=== PATIENT | female | born 1935 | race Caucasian/White ===

== ENCOUNTER → 2017-01-11 | Outpatient (CLI) | payer OTHER, BC | LOC: FIMAGING 13:52 | PROVIDERS: ATTEND Internal Medicine Endocrinology, Diabetes & Metabolism | DX: C73 Malignant neoplasm of thyroid gland (principal); E89.0 Postprocedural hypothyroidism ==

== ENCOUNTER → 2017-03-21 | Outpatient (CLI) | payer OTHER, BC | LOC: FIMAGING 09:37 | PROVIDERS: ATTEND Internal Medicine Endocrinology, Diabetes & Metabolism | DX: R59.0 Localized enlarged lymph nodes (principal); Z85.850 Personal history of malignant neoplasm of thyroid ==

== ENCOUNTER → 2017-04-12 | Outpatient (CLI) | payer OTHER, BC ==
[~2017-04-12] MED LIST: IOPAMIDOL (ISOVUE-300) 100 ML BTL ONE
== END ==
LOC: FIMAGING 07:37
PROVIDERS: ATTEND Surgery
DX: C73 Malignant neoplasm of thyroid gland (principal); R91.8 Other nonspecific abnormal finding of lung field
CPT/HCPCS: 70491; 71260; Q9967

== ENCOUNTER 2017-05-05 09:35 | Inpatient (IN) | payer OTHER, BC ==
[2017-05-05] MEDS ORDERED: ceFAZolin 2 GM/DEXTROSE 100 ML IV ONE (10:18)
[2017-05-05] MEDS ORDERED: LR 1,000 ML IV SCH ×2 (10:18→15:30)
[2017-05-05] MEDS ORDERED: DEXAMETHASONE 4 MG/ML VIAL IVP ONE (10:18)
[2017-05-05] MEDS ORDERED: LIDO/EPI 2% **for epidural** 20 ML SDV ONE (10:56)
[2017-05-05] MEDS ORDERED: ALBUMIN 5% 250 ML BOTTLE IV ONE ×2 (10:57→13:38)
[2017-05-05] MEDS ORDERED: BACITRACIN ZINC 14.2 GM OINTTUBE TP ONE (10:58)
[2017-05-05] MEDS ORDERED: fentaNYL 100 MCG/2 ML INJ ONE ×2 (10:59→13:02)
[2017-05-05] MEDS ORDERED: OXYMETAZOLINE 30 ML NASAL SPRAY ONE (10:59)
[2017-05-05] MEDS ORDERED: PROPOFOL/EMULSION 500 MG/50 ML BOTTLE IV ONE (10:59)
--- NOTE | 2017-05-05 11:08 | PDHPUP ---
History & Physical Update H&P update statement: This history and physical update is based on an assessment of the patient which was completed after admission or registration (within 24 hours), but prior to the surgery/procedure.
[2017-05-05] MEDS ORDERED: LIDOCAINE 2% 5 ML SDV ONE (11:10)
[2017-05-05] MEDS ORDERED: NYSTATIN SUSP 500000 UNIT/5 ML UDCUP PO PRN (11:10)
[2017-05-05] MEDS ORDERED: FLUCONAZOLE 100 MG TAB PO PRN (11:10)
[2017-05-05] MEDS ORDERED: ROCURONIUM 50 MG/5 ML VIAL ONE ×2 (11:10→13:36)
[2017-05-05] MEDS ORDERED: LR 1,000 ML IV ONE (11:16)
[2017-05-05] MEDS ORDERED: DEXMEDETOMIDINE HCL 400 MCG in NS 100 ML IV SCH (11:30)
[2017-05-05] MEDS ORDERED: CALCIUM CHLORIDE 1 GM/10 ML INJ ONE (13:40)
[2017-05-05] MEDS ORDERED: ONDANSETRON 4 MG/2 ML VIAL ONE (13:49)
[2017-05-05] MEDS ORDERED: RANITIDINE 50 MG/2 ML VIAL ONE (13:49)
--- NOTE | 2017-05-05 13:49 | PDANEPAE ---
ANE Past Medical History - Cardiovascular History Hx Hypertension: No Hx Arrhythmias: No Hx Chest Pain: No Hx Coronary Artery / Peripheral Vascular Disease: No Hx CHF / Valvular Disease: No Hx Palpitations: No Cardiovascular History Comment: ELEVATED LIPIDS - Pulmonary History Hx COPD: Yes Hx Asthma/Reactive Airway Disease: No Hx Recent Upper Respiratory Infection: No Hx Oxygen in Use at Home: Yes O2 in Use at Home (L/minute): 2 Hx Sleep Apnea: No Sleep Apnea Screening Result - Last Documented: Negative Pulmonary History Comment: Emphysema. O2 at 2lpm at NOC, 3lpm with activity, Hx of Pneumonia/empyema - Neurologic History Hx Cerebrovascular Accident: No Hx Seizures: No Hx Dementia: No - Endocrine History Hx Diabetes: No Endocrine History Comment: Thyroid CA, Thyroidectomy - Renal History Hx Renal Disorders: No - Liver History Hx Hepatic Disorders: No - Neurological & Psychiatric Hx Hx Neurological and Psychiatric Disorders: No - Cancer History Hx Cancer: Yes Cancer History Comment: Thyroid - Congenital Disorder History Hx Congenital Disorders: No - GI History Hx Gastrointestinal Disorders: Yes Gastrointestinal History Comment: diverticulosis - Other Health History Other Health History: Hyperlipidemia - Chronic Pain History Chronic Pain: No - Surgical History Prior Surgeries: Appendectomy, Right lung thoracotomy, Thyroidectomy, exp lap secondary to diveticulitis ANE Review of Systems Review of Systems: - Exercise capacity METS (RN): 4 METS ANE Patient History - Allergies Allergies/Adverse Reactions: No Known Allergies Allergy (Unverified 05/08/14 14:33) - Home Medications Home Medications: Albuterol [Proventil Inhaler HFA (*)] 2 puffs IH Q4H PRN 04/13/17 [Last Taken ] Aspirin [Aspirin 81mg (*)] 81 mg PO DAILY 04/13/17 [Last Taken 04/28/17] Budesonide/Formoterol 160/4.5 [Symbicort 160-4.5 Mcg Inh (*)] 2 puffs IH BID [Last Taken 05/05/17] Calcium Carbonate/Vitamin D2 [Oyster Shell Calcium-Vit D Tab] 1 each PO DAILY [Last Taken 04/28/17] Cholecalciferol Vit D3 [Vitamin D3 2000 units tab (OTC)] 2,000 units PO DAILY [Last Taken 05/05/17] Estrogens,Conjugated [Premarin Vaginal (*)] 1 lety VG Q4D 04/13/17 [Last Taken ] Fluconazole [Diflucan (*)] 200 mg PO DAILY PRN 04/13/17 [Last Taken 02/04/17] Levothyroxine [Synthroid 112 mcg (*)] 112 mcg PO DAILY06 04/13/17 [Last Taken 06:15] Multivitamins [Multivitamin (*)] 1 each PO DAILY 04/13/17 [Last Taken 05/05/17] Nystatin 100,000 unit PO BID PRN 04/13/17 [Last Taken 05/05/17] Rosuvastatin Calcium [Crestor 10mg (RX)] 10 mg PO DAILY18 04/13/17 [Last Taken 05/04/17] - NPO status NPO Since - Liquids (Date): 05/05/17 NPO Since - Liquids (Time): 07:00 NPO Since - Solids (Date): 05/04/17 NPO Since - Solids (Time): 21:00 - Smoking Hx Smoking Status: Former smoker ANE Labs/Vital Signs - Vital Signs Blood Pressure: 139/78 Heart Rate: 83 Respiratory Rate: 18 O2 Sat (%): 88 Height: 157.48 cm Weight: 51.256 kg ANE Physical Exam - Airway Neck exam: decreased ROM Mallampati Score: Class 2 Mouth exam: small mouth opening - Pulmonary Pulmonary: reduced air movement, expiratory wheeze, respiratory distress - Cardiovascular Cardiovascular: regular rate and rhythym, no murmur, rub, or gallop - ASA Status ASA Status: IV ANE Anesthesia Plan Anesthesia Plan: general endotracheal anesthesia Lines/Monitors: arterial line, central line, additional IV Specialized Airway: video laryngoscope
[2017-05-05] MEDS ORDERED: SUGAMMADEX SODIUM 200 MG/2 ML VIAL IVP ONE (14:57)
[2017-05-05] MEDS ORDERED: ONDANSETRON 4 MG/2 ML VIAL IVP PRN ×2 (15:25→16:23)
[2017-05-05] MEDS ORDERED: PROPOFOL 200 MG/20 ML VIAL ONE (15:35)
[2017-05-05] MEDS ORDERED: FAMOTIDINE 20 MG/NACL 50 ML IV SCH (15:45)
--- NOTE | 2017-05-05 15:53 | POSTOPPROG ---
Post Op Note Date of Operation: 05/05/17 Surgeon: Romain Thayer (, FACS) Phd Intern: Mira Ceballos MD Anesthesiologist: Angela Rachel MD Anesthesia: GET(General Endotracheal) Pre-op Diagnosis: recurrent papillary CA of the thyroid Post-op Diagnosis: same Procedure: resection recurrent thyroid cancer/modified neck dissection Findings: necrotic tumor involving multiple nodes levels 2-6/recurrent tumor Inf/Abcess present in the surg proc area at time of surgery?: No EBL: 50-100 (100ml) Drains: Deejay Alexander
[2017-05-05] MEDS ORDERED: fentaNYL 100 MCG/2 ML INJ IVP PRN (16:23)
[2017-05-05] MEDS ORDERED: NALOXONE HCL 0.4 MG/ML INJ IVP PRN (16:23)
[2017-05-05] MEDS ORDERED: LR 500 ML IV PRN (16:23)
--- NOTE | 2017-05-05 16:25 | POSTANESTH ---
Post Anesthetic Evaluation Cardiovascular Status: Normal, Stable, Similar to Pre-Op Cond Respiratory Status: Similar to Pre-op Cond. Level of Consciousness/Mental Status: Can Participate in Eval Pain Control: Adequate, Prn Tx Ordered Nausea/Vomiting Control: Adequate, Prn Tx Ordered Complications Possibly Related to Anesthesia: None Noted
[2017-05-05] MEDS ORDERED: HYDROCOD/APAP 7.5/325 IN 15ML UDCUP PO PRN (16:42)
[2017-05-05 16:45] LABS: HEMOGLOBIN 10.4 g/dL (12.6-16.3)
--- NOTE | 2017-05-05 16:48 | SOAPPROG ---
Downtime Inpatient MD Late Entry SOAP Note: Mandi was extubated in the ICU and is resting comfortably. Post op CXR shows no pneumo/mild LLL atelectasis Findings of surgery discussed with Mandi and her family. Medina Thayer MD, FACS
[2017-05-05 17:02] LABS: ANION GAP 10 mEq/L (8-16); CALCIUM 8.7 mg/dL (8.5-10.4); CARBON DIOXIDE 26 mEq/l (22-31); CHLORIDE 100 mEq/L (97-110); CREATININE 0.7 mg/dL (0.6-1.0); GLOMERULAR FILTRATION RATE > 60; GLUCOSE 118 mg/dL (70-100); POTASSIUM 3.8 mEq/L (3.5-5.2); SODIUM 136 mEq/L (134-144)
[2017-05-05] MEDS: ROSUVASTATIN CALCIUM 10 MG TAB PO SCH (18:30)
--- NOTE | 2017-05-05 18:33 | GOP ---
[f rep st] OPERATIVE REPORT DATE OF OPERATION: 05/05/2017 SURGEON: Mira Ceballos MD PREOPERATIVE DIAGNOSIS: 1. Recurrent papillary thyroid carcinoma. 2. Dysphonia. 3. 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 POSTOPERATIVE DIAGNOSIS: 1. Recurrent papillary thyroid carcinoma. 2. Dysphonia. 3. 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 PROCEDURE PERFORMED: Left injection laryngoplasty FINDINGS: left true vocal fold atrophy and right true vocal fold hematoma. 0.6 cc of Prolaryn Plus was injected just lateral to the left true vocal fold. DESCRIPTION OF PROCEDURE: The patient was first seen in the preoperative area, where informed consent was obtained. She was then brought back to the operating room. Anesthesia sedated and intubated her. She was prepped and draped in a sterile fashion for a modified radical neck dissection on the left, of which I assisted Dr. Thayer. Dr. Thayer will dictate the operative report. A universal protocol time-out was performed. Once this was done after the modified radical neck dissection, the patient was turned 90 degrees, and her ET tube was changed out from a 7 to a 5.5 by Anesthesia. Once this was done, a tooth guard was placed, and then she was prepped and draped in a normal fashion. A Pilling anterior commissure laryngoscope was used to do a DL. Once I was able to visualize her arytenoids, they looked significantly swollen. She was noted to have a right true vocal fold hematoma that seemed to have occurred prior. She was somewhat of a difficult intubation due to being slightly anterior per Anesthesia. So at this point, the laryngoscope was set so that I could see the bilateral true vocal folds well. This was suspended with the Pilling set up and the Pinzon, giving me both hands to utilize. So at this point , the zero-degree De Paz bre was brought into the field. This was used for visualization of the true vocal folds bilaterally, and this confirmed the right true vocal fold hematoma, as well as a slightly atrophic looking left true vocal fold. At this point with the De Paz bre giving us visualization, I brought in the injection needle of the Prolaryn Plus. This was placed just lateral to the true vocal fold, and then I visualized the black line on the injection needle telling me that I was in a good position, and I began injecting under direct visualization. I did have good visualization of the true vocal fold bulking. I put in about 0.6 cc of the Prolaryn Plus, and then the injection needle was withdrawn and removed from the field. A small amount of material was suctioned from the injection site, and an Afrin-soaked pledget was used to smooth out the true vocal fold. Once this was done, all instruments were removed, and LTA was placed, and then the laryngoscope was removed, as well as the tooth guard without difficulty. At this point, she was turned back over to Anesthesia, where she was awoken and extubated, and taken to PACU in stable condition. There were no complications. She tolerated the procedure well. /[id number]/MODL MTDD
[2017-05-05] MEDS: CHLORHEXIDINE GLUCONATE 15 ML UDL PO SCH (20:52)
[2017-05-05] MEDS: ceFAZolin 2 GM/DEXTROSE 100 ML IV SCH (20:52)
--- NOTE | 2017-05-05 22:24 | GOP ---
[f rep st] OPERATIVE REPORT DATE OF OPERATION: 05/05/2017 SURGEON: Romain Thayer MD, FACS CHARCOAL UNLOADER: Mira Ceballos MD ANESTHESIA: General endotracheal. ANESTHESIOLOGIST: Tea Rachle MD PREOPERATIVE DIAGNOSIS: Recurrent papillary carcinoma of the thyroid. POSTOPERATIVE DIAGNOSIS: Recurrent papillary carcinoma of the thyroid. PROCEDURE PERFORMED: Resection of recurrent thyroid carcinoma with modified neck dissection, left FINDINGS: Multiple involved nodes in the level 2 through level 6, left neck. Recurrent papillary carcinoma of the thyroid invading the cricoid and abutting the vagus nerve, jugular vein, and esophagus. ESTIMATED BLOOD LOSS: For the procedure was 100 mL. DESCRIPTION OF PROCEDURE: After informed consent was obtained, the patient was brought to the operating room and placed under general anesthesia. The operative plan was to perform a radical left neck dissection in conjunction with resection of the recurrent tumor which was fixed to the side of the cricoid and had previously been resected twice. The plan included a possible pectoralis myofascial flap and the patient was marked preoperatively for this procedure. Before proceeding with the operation, a time-out was performed and a left arterial line was placed by Dr. Rachel and I placed a right internal jugular triple-lumen catheter under sonographic visualization after a failed attempt at subclavian cannulation. The neck, chest, and abdomen were then prepped and draped in the usual fashion. The prior thyroidectomy incision was extended into the left neck to the base of the mastoid and flaps were elevated on both sides of the tumor mobilizing the skin and platysma muscle cephalad to the mastoid and angle of the mandible. Inferior and lateral dissection was performed extending beyond the sternocleidomastoid muscle and medially across the midline. The external jugular vein was clamped, divided, and ligated with 3 -0 silk sutures. As the dissection was carried out, multiple nodes in the level 2 chain were noted to be involved with tumor. One of these contained necrotic tumor that bled profusely after the node was manipulated and decompressed through the capsule. Hemostasis was secured with bipolar as well as with the Harmonic Scalpel. The capsule of the node was adherent to the adventitia of the jugular vein. This was dissected away with sharp dissection and the node was resected with portions of the capsule. The spinal accessory nerve as well as the vagus nerve were identified as was the carotid bulb. Dissecting inferiorly, the tumor was mobilized. The cricoid muscle above and the omohyoid muscle below were involved. Both of these were divided along with the tumor which invaded the side of the cricoid and was abutting the jugular vein as well as the vagus nerve and posteriorly the esophagus. Sharp dissection was used to liberate the tumor, though clearly tumor was left behind in the cricoid cartilage. Level 6 nodes were dissected down to the inferior neck posterior to the sternocleidomastoid muscle and deep to the head of the clavicle. Nodes were submitted for permanent section. At this point, we elected to preserve the sternocleidomastoid muscle as this was not an R0 resection and the plan had been for the patient to receive I-131 and external beam radiation in the postoperative period. The neck was irrigated and hemostasis appeared secure. The sternocleidomastoid muscle was returned to its anatomic position. A 19-Romansh fluted drain was brought through a stab wound posteriorly and placed into the neck. Topical Surgicel was placed over the tumor on the side of the trachea to prevent adhesion formation and to aid in hemostasis. The platysma and subcutaneous tissues were approximated with interrupted 2-0 Vicryl sutures. Skin was closed with kamille. Drain was secured to skin with 3-[address] Ceballos then performed a microlaryngoscopy with injection of the left true vocal cord, at which time she observed that there was a small hematoma in the right vocal cord region likely related to her intubation. She will dictate this as a separate operative report. COMPLICATIONS: None. FINDINGS: Unresectable tumor in the cricoid abutting the internal jugular vein , trachea, vagus nerve, and esophagus. Multiple nodes in the level 2 through 6 chain involved with metastatic tumor. No clinical indications for a more radical procedure at this time. COMPLICATIONS: None. /[id number]/MODL MTDD
[2017-05-05] MEDS: BUDESONIDE/FORMOTEROL 160/4.5 60 PUFFS/MDI IH SCH (22:32)
[2017-05-06] MEDS: ceFAZolin 2 GM/DEXTROSE 100 ML IV SCH (04:39)
[2017-05-06 05:30] LABS: % IMMATURE GRANULYOCYTES 0.4 % (0.0-1.1); ABSOLUTE IMMATURE GRANULOCYTES 0.05 10^3/uL (0.00-0.10); ADD DIFF? NO; ADD MORPH? NO; ADD SCAN? NO; ATYPICAL LYMPHOCYTE FLAG 10 (0-99); FRAGMENT RBC FLAG 0 (0-99); HEMATOCRIT 31.2 % (38.0-47.0); HEMOGLOBIN 10.3 g/dL (12.6-16.3); LEFT SHIFT FLG 0 (0-99); LIPEMIA HEMOLYSIS FLAG 80 (0-99); MEAN CELL HEMOGLOBIN 29.3 pg (27.9-34.1); MEAN CELL VOLUME 88.6 fL (81.5-99.8); MEAN PLATELET VOLUME 11.8 fL (8.7-11.7); PLATELET CLUMPS FLAG 0 (0-99); PLATELET COUNT 140 10^3/uL (150-400); RED BLOOD CELL COUNT 3.52 10^6/uL (4.18-5.33); RED CELL DISTRIBUTION WIDTH 14.3 % (11.5-15.2)
[2017-05-06] MEDS: LEVOTHYROXINE 112 MCG TAB PO SCH ×2 (06:17→08:41)
--- NOTE | 2017-05-06 07:09 | SOAPPROG ---
SOAP Progress Note Assessment/Plan: Assessment: stable post op debulking of recurrent papillary CA of the left thyroid voice improved after VC injection Plan:DC A-line and Sanchez Transfer to [facility]-surg anticipate discharge tomorrow We discussed findings at surgery and plans for post op RT 05/06/17 07:12 Subjective: c/o headache, denies significant incisional pain/has not required narcotics Objective: Vital Signs Temp Pulse Resp BP Pulse Ox 36.6 C 79 19 118/44 L 93 05/06/17 05:00 05/06/17 06:00 05/06/17 06:00 05/06/17 06:00 05/06/17 06:00 Laboratory Results 05/06/17 04:50 05/05/17 16:31 05/05/17 05/06/17 05/07/17 05:59 05:59 05:59 Intake Total 1516 Output Total 1445 Balance 71 - Time Spent With Patient Time Spent With Patient: 20 minutes - Pending Discharge Pending Discharge Within 24 Hours: Yes Pending Discharge Date: 05/07/17 Pending Discharge Time: 11:00 Physical Exam - Physical Exam General Appearance: no apparent distress Neck: other (incision o.k./ASHLEY sero-sanguinous) Respiratory: lungs clear, decreased breath sounds Cardiac/Chest: regular rate, rhythm Skin: warm/dry Neuro/Psych: normal mood/affect, oriented x 3 ICD10 Worksheet Patient Problems: Problems Problem Status Onset COPD (chronic obstructive pulmonary disease) Acute HTN (hypertension) Acute 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 - ICD10 Problem Qualifiers (1) Local recurrence of cancer of thyroid gland (2) COPD (chronic obstructive pulmonary disease) Qualifiers: COPD type: emphysema (3) HTN (hypertension) Qualifiers: Hypertension type: essential hypertension Qualified Code(s): I10 - Essential (primary) hypertension
[2017-05-06] MEDS: ACETAMINOPHEN 650 MG/20.3 ML UDCUP PO PRN ×2 (07:26→17:55)
[2017-05-06] MEDS: ASPIRIN 81 MG CHEWABLE TAB PO SCH (08:38)
[2017-05-06] MEDS: FAMOTIDINE 20 MG TAB PO SCH (08:38)
[2017-05-06] MEDS: ENOXAPARIN 30 MG/0.3 ML SYR SC SCH (08:38)
[2017-05-06] MEDS: CHLORHEXIDINE GLUCONATE 15 ML UDL PO SCH ×2 (08:39→20:08)
[2017-05-06] MEDS: ALBUTEROL 200 PUFFS/18 GM MDI IH PRN ×2 (09:23→20:02)
[2017-05-06] MEDS: BUDESONIDE/FORMOTEROL 160/4.5 60 PUFFS/MDI IH SCH ×2 (09:24→20:02)
--- NOTE | 2017-05-06 16:07 | ASMTCMCOM ---
CM Note CM Note Notes: Patient is stable post-op debulking of recurrent papillary cancer of the L thyroid. She will likely transfer out of ICU to Med-Surg and then discharge home. No PT/OT needs, and patient has supportive friends and family. She does not have any discharge needs at this time, CM available if that changes. Date Signed: 05/06/2017 04:07 PM Electronically Signed By:Verónica Elias RN
[2017-05-06] MEDS: ROSUVASTATIN CALCIUM 10 MG TAB PO SCH (17:08)
[2017-05-07] MEDS: LEVOTHYROXINE 112 MCG TAB PO SCH (05:58)
[2017-05-07 07:53] VITALS: BP 94/60; PULSE 65; RESP 16; TEMP 98.4; O2SAT 99
[2017-05-07] MEDS: ENOXAPARIN 30 MG/0.3 ML SYR SC SCH (07:58)
[2017-05-07] MEDS: ASPIRIN 81 MG CHEWABLE TAB PO SCH (07:58)
[2017-05-07] MEDS: FAMOTIDINE 20 MG TAB PO SCH (07:58)
[2017-05-07] MEDS: CHLORHEXIDINE GLUCONATE 15 ML UDL PO SCH (09:04)
--- NOTE | 2017-05-07 09:57 | PDDCSUM ---
Discharge Summary Discharge Summary: DOA: 05/05/17 DOD: 05/07/17 DC Dx: recurrent papillary CA Thyroid Procedures: resection of recurrent thyroid cancer/modified neck dissection/ microlaryngoscopy Course: For details of history please refer to the pre-op consult note. Mandi underwent surgery on the day of admission. She was admitted to ICU post op and was extubated there. She recovered uneventfully and required no post op narcotics. I removed her drain on the morning of discharge and instructed her in wound care. She will follow up in my office this coming for staple removal. Additional treatment of her residual disease will follow as an outpatient with I-131 and external beam radiation DC meds: per med reconciliation/no new medications Medina Thayer MD, FACS
[2017-05-07] MEDS: BUDESONIDE/FORMOTEROL 160/4.5 60 PUFFS/MDI IH SCH (10:09)
== END 2017-05-07 12:10 | disposition home or self-care (01) | DRG 630 ==
LOC: F3E 09:35 → F2N 12:11 → OBSVTOIN 15:25 → F2N 16:06
PROVIDERS: ADMIT Surgery; ATTEND Surgery
PROC: 07T20ZZ Resection of Left Neck Lymphatic, Open Approach (ICD-10-PCS; principal; 2017-05-05 11:00)
PROC: 0MB Bursae and Ligaments, Excision (ICD-10-PCS; principal; 2017-05-05 11:00)
PROC: 3E0D7GC Introduction of Other Therapeutic Substance into Mouth and Pharynx, Via Natural or Artificial Opening (ICD-10-PCS; principal; 2017-05-05 11:00)
DX: C73 Malignant neoplasm of thyroid gland (principal); R91.8 Other nonspecific abnormal finding of lung field; I49.9 Cardiac arrhythmia, unspecified; J38.01 Paralysis of vocal cords and larynx, unilateral; R49.0 Dysphonia; J38.3 Other diseases of vocal cords; J44.9 Chronic obstructive pulmonary disease, unspecified
CPT/HCPCS: C1878; J0690; J1100; J1650; J2405; J2704; J2780; J3010; P9041

== ENCOUNTER → 2017-05-28 | Outpatient (CLI) | payer OTHER, BC | LOC: BMCIMAGING 13:35 | PROVIDERS: ATTEND Family Medicine | DX: J90 Pleural effusion, not elsewhere classified (principal); J98.11 Atelectasis ==

== ENCOUNTER → 2017-06-27 | Outpatient (CLI) | payer OTHER, BC | LOC: FIMAGING 10:51 | PROVIDERS: ATTEND Internal Medicine Endocrinology, Diabetes & Metabolism | DX: C73 Malignant neoplasm of thyroid gland (principal) | CPT/HCPCS: 78018; 79005; A9517 ==

== ENCOUNTER 2017-09-12 04:47 | Emergency (ER) | payer OTHER, BC ==
--- NOTE | 2017-09-12 04:58 | EDPHY ---
H & P HPI/ROS: HPI CHIEF COMPLAINT: Abdominal pain HISTORY OF PRESENT ILLNESS: Patient very pleasant 82-year-old female she presents emergency room with abdominal pain, it is focally tender in the epigastric region. Reproducible on 1 particular area. The pain is 6/10. Located epigastric region. It is been constant since 930 last night. Patient states that is been persistent all night and has not went away. She was unable to sleep. She endorses nausea but no vomiting. Denies diarrhea. No fever. Denies chest pain or shortness of breath. She can focally press in 1 particular area that hurts her. She describes a sharp stabbing pain constant. Currently 6 /10. Past Medical History: Thyroid cancer, COPD ?ILD On o2 2LNC Past Surgical History: Cecal diverticulum, appendectomy, thyroid cancer, neck dissection Social History: Denies drugs alcohol tobacco products. Family History: Noncontributory ROS REVIEW OF SYSTEMS: A comprehensive 10 point review of systems is otherwise negative aside from elements mentioned in the history of present illness. Exam Constitutional appears uncomfortable, triage nursing summary reviewed, vital signs reviewed, awake/alert. Eyes normal conjunctivae and sclera, EOMI, PERRLA. HENT normal inspection, atraumatic, dry mucus membranes, no epistaxis, neck supple/ no meningismus, no raccoon eyes. Respiratory clear to auscultation bilaterally, normal breath sounds, no respiratory distress, no wheezing. Cardiovascular rate normal, regular rhythm, no murmur, no edema, distal pulses normal. Gastrointestinal abdomen is tender in 1 focal area along the epigastric region , I do not appreciate peritoneal signs, when I press in her lower abdomen that it does cause discomfort as well. Main area pain epigastric region. I cannot appreciate a hernia. Genitourinary no CVA tenderness. Musculoskeletal no midline vertebral tenderness, full range of motion, no calf swelling, no tenderness of extremities, no meningismus, good pulses, neurovascularly intact. Skin pink, warm, & dry, no rash, skin atraumatic. Neurologic awake, alert and oriented x 3, AAOx3, moves all 4 extremities equally, motor intact, sensory intact, CN II-XII intact, normal cerebellar, normal vision, normal speech. Psychiatric normal mood/affect. Heme/Lymph/Immune no lymphadenopathy. Differential Diagnosis: Includes but is not limited to in a particular order bowel obstruction, internal hernia, abdominal wall hernia, pancreatitis, necrotic bowel, gallbladder disease gallbladder disease, diverticulitis, colitis, enteritis, perforated viscus, gastritis, GERD, esophagitis, urinary tract infection, pyelonephritis, kidney stones Medical Decision Making: Plan for this patient IV establishment IV fluid bolus , 0.5 mg IV Dilaudid for pain control, 4 mg IV Zofran for nausea, check lactic acid, basic blood work, UA, check lipase, check LFTs, KUB to rule out abnormal bowel gas pattern, proceed with CT scan abdomen pelvis with IV contrast most likely consult General surgery for evaluation. Re-evaluation: KUB one view reviewed. I do not appreciate free air. And I do not appreciate a bowel gas pattern suggesting obstruction. Will proceed with CT scan. 0705: CT scan abdomen pelvis with IV contrast shows gallstones but no significant gallbladder wall thickening or fluid, additionally the CT scan shows hepatic large cyst in the area of focal tenderness, additionally the CT scan shows right inguinal hernia with bowel in it but no evidence of incarceration. This was called to me by Dr. Spicer. 0705: On re-examination at this time I did review the patient's blood work, CT scan. She does feel slightly better with IV Dilaudid but has exquisite tenderness over the epigastric region on reproducible exam. 0705: I have called Dr. Sharan Thayer with surgery who actually knows this patient because the patient is his patient he will be glad to admit the patient for pain control and further evaluation of her abdominal pain. He did request that I consult hospitalist service as well. EKG interpretation by me on record in [employer] system. Impression time of EKG 6:20 a.m., sinus rhythm rate of 89. No acute ischemic change appreciated. Patient has been made NPO. Additional I did speak with the hospitalist service Dr. Guy to Consult on this patient. Source: Patient - Medical/Surgical History Hx Asthma: No Hx Chronic Respiratory Disease: Yes Hx Diabetes: No Hx Cardiac Disease: No Hx Renal Disease: No Hx Cirrhosis: No Hx Alcoholism: No Hx HIV/AIDS: No Hx Splenectomy or Spleen Trauma: No - Social History Smoking Status: Former smoker Constitutional: Initial Vital Signs Temperature (C) 36.6 C 09/12/17 04:53 Heart Rate 74 09/12/17 04:53 Respiratory Rate 18 09/12/17 04:53 Blood Pressure 136/64 H 09/12/17 04:53 O2 Sat (%) 90 L 09/12/17 04:53 O2 Delivery Mode Nasal Cannula O2 (L/minute) 2 Allergies/Adverse Reactions: No Known Allergies Allergy (Unverified 05/08/14 14:33) Home Medications: Medication Instructions Recorded Aspirin [Aspirin 81mg (*)] 81 mg PO HS 04/13/17 Calcium Carbonate/Vitamin D2 1 each PO DAILY18 04/13/17 [Oyster Shell Calcium-Vit D Tab] Cholecalciferol Vit D3 [Vitamin D3 2,000 units PO DAILY18 04/13/17 2000 units tab (OTC)] Fluconazole [Diflucan (*)] 200 mg PO DAILY PRN 04/13/17 Multivitamins [Multivitamin (*)] 1 each PO BID 04/13/17 Nystatin 100,000 unit PO BID PRN 04/13/17 Budesonide/Formoterol 160/4.5 2 puffs IH BID mdi 05/07/17 [Symbicort 160-4.5 Mcg Inh (*)] Levothyroxine [Synthroid 112 mcg 112 mcg PO DAILY06 tab 05/07/17 (*)] Rosuvastatin Calcium [Crestor 5mg] 5 mg PO DAILY18 09/12/17 Medical Decision Making - Diagnostics Imaging Results: Imaging Impressions Abdomen CT 09/12/17 05:07 Impression: 1. Right inguinal hernia with ileocecal bowel extending into the hernia region. 2. Atherosclerotic aorta without aneurysm. 3. Multiple hepatic cysts. 4. Cholelithiasis without gallbladder wall thickening or pericholecystic fluid. No biliary ductal dilation. Consider follow up ultrasound or HIDA scan. 5. Constipation. Findings and recommendations discussed with Emergency Department physician, Romain Higgins MD at 0605 hours, 09/12/2017. call center trainer. Final report concurs with initial preliminary interpretation. Abdomen X-Ray 09/12/17 05:07 Impression: 1. Abdomen negative for acute localizing features. 2. Query constipation. - Data Points Laboratory Results: Laboratory Results 09/12/17 05:15 09/12/17 05:15 Medications Given: Discontinued Medications Hydromorphone HCl (Dilaudid) 0.5 mg IVP EDNOW ONE Stop: 09/12/17 05:09 Last Admin: 09/12/17 05:28 Dose: 0.5 mg Sodium Chloride (Ns) 1,000 mls @ 0 mls/hr IV EDNOW ONE; Wide Open PRN Reason: Protocol Stop: 09/12/17 05:01 Last Admin: 09/12/17 05:18 Dose: 1,000 mls Ondansetron HCl (Zofran) 4 mg IVP EDNOW ONE Stop: 09/12/17 05:08 Last Admin: 09/12/17 05:29 Dose: 4 mg Departure - Departure Disposition: [facility] Inpatient Acute Clinical Impression: Abdominal pain Qualifiers: Abdominal location: epigastric Qualified Code(s): R10.13 - Epigastric pain Condition: Fair Instructions: Acute Abdominal Pain (ED), Acute Abdominal Pain (DC) Additional Instructions: return for increasing abd pain. [facility] to [facility] for [facility] and followup with your normal Doctors for further evaluation. Referrals: Estela Grimaldo MD [Primary Care Provider] - As per Instructions Romain Thayer MD [Medical Doctor] -
[2017-09-12 04:59] VITALS: TEMP 97.9
[2017-09-12] MEDS ORDERED: NS 1,000 ML IV ONE (05:00)
[2017-09-12] MEDS ORDERED: ONDANSETRON 4 MG/2 ML VIAL IVP ONE (05:07)
[2017-09-12] MEDS ORDERED: HYDROmorphONE/DILAUDID 1 MG/ML INJ IVP ONE (05:08)
[2017-09-12] MEDS ORDERED: IOPAMIDOL (ISOVUE-300) 100 ML BTL ONE (05:11)
[2017-09-12 05:24] LABS: PLATELET COUNT 175 10^3/uL (150-400)
[2017-09-12 05:33] LABS: INR 0.99 (0.83-1.16); PROTIME(PATIENT) 13.3 SEC (12.0-15.0)
--- NOTE | 2017-09-12 06:21 | CPEKG ---
Heart Rate: 91 RR Interval: 659 P-R Interval: 168 QRSD Interval: 78 QT Interval: 384 QTC Interval: 473 P [place]: 62 QRS [place]: 38 T Wave [place]: 45 EKG Severity - OTHERWISE NORMAL ECG - EKG Impression: SINUS ARRHYTHMIA, RATE 69-107 Electronically Signed By: Romain Higgins 12-Sep-2017 07:19:19
[2017-09-12 08:18] VITALS: BP 120/64; PULSE 75; RESP 16; O2SAT 98
[2017-09-12] MEDS ORDERED: HYDROmorphONE/DILAUDID 1 MG/ML INJ IVP PRN (08:26)
[2017-09-12] MEDS ORDERED: NYSTATIN SUSP 500000 UNIT/5 ML UDCUP PO PRN (08:26)
[2017-09-12] MEDS ORDERED: FLUCONAZOLE 100 MG TAB PO PRN (08:26)
[2017-09-12] MEDS ORDERED: LR 1,000 ML IV SCH (08:30)
[2017-09-12] MEDS ORDERED: BUDESONIDE/FORMOTEROL 160/4.5 60 PUFFS/MDI IH SCH (09:00)
--- NOTE | 2017-09-12 09:26 | PDCONSULT ---
Elderly Caregiver Note: #[id number] Seferino Thayer MD, FACS
--- NOTE | 2017-09-12 09:52 | GCON ---
[f rep st] CONSULTATION DATE OF CONSULTATION: 09/12/2017 CHIEF COMPLAINT: Abdominal pain. HISTORY OF PRESENT ILLNESS: Patient is an 82-year-old female who presented with sudden onset of abdo sandi pain last night. Pain persisted through the night, was sharp, high epigastric subxiphoid in lo cation, and not associated with any gastrointestinal symptoms. Specifically, no nausea, vomiting, di arrhea. She has been mildly constipated lately. She was seen in the emergency room by Dr. Higgins, who performed a CT scan that showed multiple findings including gallstones and multiple hepatic cysts which were known to the patient. She was also found to have a right inguinal hernia and mild consti pation. Surgical consultation was requested. Patient received 1 dose of Dilaudid approximately 2 ho urs ago and feels improved though she continues to have mild pain. She was scheduled for radiation t herapy appointment this morning with Dr. Goncalves and is requesting discharge from the emergency room s o she can attend that radiation session. PAST MEDICAL HISTORY: Significant for recurrent papillary carcinoma of the thyroid, presenting initi [facility] in 2007 as a paralyzed vocal cordon the left side. Patient underwent debulking, followed by rad ioactive iodine. Had a recurrence 6 years later that was treated by debulking and radioactive iodine , and most recently underwent re-resection a third time, followed by radioactive iodine, and now exte rnal beam radiation. She has a history of COPD, mild hypertension, hepatic cysts. MEDICATIONS: Chronic: Include oxygen at 3-4 L/minute, aspirin 81 mg per day, calcium carbonate and vitamin D2, as well as vitamin D3, multivitamins, Crestor 5 mg p.o. daily, Symbicort 2 puffs b.i.d., fluconazole 200 mg p.o. daily during radiation, levothyroxine 112 mcg p.o. daily, and nystatin 100,00 0 units b.i.d. while on radiation. ALLERGIES: She has no known drug allergies. SOCIAL HISTORY: She has a remote smoking history. Patient lives alone. She has a daughter who does not live in the area. Has several friends. FAMILY HISTORY: Noncontributory. REVIEW OF SYSTEMS: Denies shortness of breath, chest pain, nausea, vomiting, diarrhea, jaundice, yuri k pain. PHYSICAL EXAMINATION: GENERAL: Reveals an articulate woman who appears in mild distress. VITAL SIG NS: Blood pressure 120/64, heart rate 75, O2 saturation 98% on 2 L, temperature is 36.6. NECK: Sup ple without palpable adenopathy. There is early radiation change of the left neck. The trachea is m idline. LUNGS: Clear to auscultation. HEART: Regular in rate and rhythm. ABDOMEN: Soft. Mildly distended, with hypoactive bowel sounds. Patient has focal tenderness in the subxiphoid position mi dline, without palpable hernia or mass. Patient has no right upper quadrant tenderness and no back, flank or CVA tenderness. Lower abdomen is completely nontender. She has a reducible right inguinal hernia. LABORATORY STUDIES: WBC is 6.28, hemoglobin 13.6, hematocrit 40.6, platelets are 175,000. Chemistri es all within normal range with the exception of ALT mildly elevated at 59. Lipase was 183. CT scan was reviewed and shows multiple hepatic cysts including a large bilobed cyst in the left lateral seg ment directly below the xiphoid process in the area where the patient is tender. There is slight inc reased density within the cyst, suggesting the possibility of intracystic hemorrhage. Patient's gall bladder was mildly dilated but without wall thickening and has a few calcified gallstones. There is no extrahepatic biliary or ductal dilatation. No free fluid in the abdomen. IMPRESSION: 1. Abdominal pain, likely related to intracystic hemorrhage, long-standing hepatic cyst. 2. Cholelithiasis. Cannot exclude choledocholithiasis based on the current workup and evaluation. The patient had no gastrointestinal symptoms and this would seem less likely. 3. Recurrent papillary carcinoma of the thyroid, currently under external beam radiation therapy. 4. History of chronic obstructive pulmonary disease. 5. Hypertension. 6. Hyperlipidemia. RECOMMENDATIONS: Patient would like to be discharged to continue her radiation therapy and will retu rn should her pain get worse. I suspect this will improve over the next few days and resolve without intervention. If symptoms worsen, would recommend further workup with hepatobiliary scanning and/or MRCP. /[id number]/MODL
[2017-09-13] MEDS ORDERED: LEVOTHYROXINE 112 MCG TAB PO SCH (06:00)
== END 2017-09-12 09:40 | disposition home or self-care (01) ==
LOC: UNDOADMOB 07:07
DX: K80.20 Calculus of gallbladder without cholecystitis without obstruction (principal); C73 Malignant neoplasm of thyroid gland; J44.9 Chronic obstructive pulmonary disease, unspecified; I10 Essential (primary) hypertension; E78.5 Hyperlipidemia, unspecified
CPT/HCPCS: 74018; 74177; 93005; 96374; 96375; 99285; J1170; J2405; Q9967; 82947-QW

== ENCOUNTER → 2018-02-20 | Outpatient (CLI) | payer OTHER, BC | LOC: FIMAGING 14:35 | PROVIDERS: ATTEND Internal Medicine Critical Care Medicine | DX: I50.9 Heart failure, unspecified (principal) ==

== ENCOUNTER → 2018-10-08 | Outpatient (CLI) | payer OTHER | LOC: BMCIMAGING 13:57 | PROVIDERS: ATTEND Nurse Practitioner Adult Health | DX: J44.9 Chronic obstructive pulmonary disease, unspecified (principal); R91.8 Other nonspecific abnormal finding of lung field ==

== ENCOUNTER 2018-11-03 11:46 | Emergency (ER) | payer OTHER ==
--- NOTE | 2018-11-03 12:20 | EDPHY ---
H & P Stated Complaint: SOB x 5 days - cough x 4 weeks unimproved w/ antibioics Time Seen by Provider: 11/03/18 11:59 HPI/ROS: CHIEF COMPLAINT: Dyspnea and cough HISTORY OF PRESENT ILLNESS: The patient presents to the ED with complaints of dyspnea and cough which been present for the past several weeks. The patient has been treated with 2 rounds of antibiotics. She does have a history of COPD and is on home oxygen. She denies fever. She denies leg swelling. She denies asymmetric calf pain or edema. The patient has been using nebulizers at home without improvement. She has not taken steroids. The patient denies any abdominal pain, vomiting or diarrhea. She denies any exertional pain or other concerns. REVIEW OF SYSTEMS: A comprehensive 10 point review of systems is otherwise negative aside from elements mentioned in the history of present illness. Source: Patient Exam Limitations: No limitations - Medical/Surgical History Hx Asthma: No Hx Chronic Respiratory Disease: Yes Hx Diabetes: No Hx Cardiac Disease: No Hx Renal Disease: No Hx Cirrhosis: No Hx Alcoholism: No Hx HIV/AIDS: No Hx Splenectomy or Spleen Trauma: No Other PMH: Thyroid CA, COPD, PNA - Social History Smoking Status: Former smoker - Physical Exam Exam: General Appearance: Elderly female, thin, no acute distress Eyes: Pupils equal and round no pallor or injection ENT, Mouth: Mucous membranes moist Respiratory: Distant breath sounds, no tachypnea Cardiovascular: Regular rate and rhythm Gastrointestinal: Abdomen is soft and nontender, no masses, bowel sounds normal Neurological: 5/5 strength all 4 extremities Skin: Warm and dry, no rashes Musculoskeletal: Neck is supple nontender, no clinical evidence of DVT Extremities: symmetrical, full range of motion Constitutional: Initial Vital Signs Temperature (C) 36.7 C 11/03/18 11:52 Heart Rate 83 11/03/18 11:52 Respiratory Rate 20 11/03/18 11:52 Blood Pressure 113/64 11/03/18 11:52 O2 Sat (%) 98 11/03/18 11:52 O2 Delivery Mode Nasal Cannula O2 (L/minute) 2 Allergies/Adverse Reactions: No Known Allergies Allergy (Verified 11/03/18 11:49) Home Medications: Medication Instructions Recorded Aspirin [Aspirin 81mg (*)] 81 mg PO HS 04/13/17 Calcium Carbonate/Vitamin D2 1 each PO DAILY18 04/13/17 [Oyster Shell Calcium-Vit D Tab] Cholecalciferol Vit D3 [Vitamin D3 2,000 units PO DAILY18 04/13/17 2000 units tab (OTC)] Multivitamins [Multivitamin (*)] 1 each PO BID 04/13/17 Levothyroxine [Synthroid 112 mcg 112 mcg PO DAILY06 tab 05/07/17 (*)] Rosuvastatin Calcium [Crestor 5mg] 5 mg PO DAILY18 09/12/17 Medical Decision Making - Diagnostics EKG Interpretation: EKG: Complete interpretation has been separately recorded in the [facility] archive. Summary impression: Sinus rhythm, rate 89, PAC's, no ischemic changes noted. Imaging Results: Imaging Impressions Chest X-Ray 11/03/18 12:00 Impression: 1. Increasing consolidation right upper lobe suggestive of asymmetric pulmonary edema or pneumonia. 2. Small right pleural effusion, stable. 3. Underlying emphysema.. ED Course/Re-evaluation: The patient presents the emergency department with worsening dyspnea. The patient has been treated with Augmentin and doxycycline over the past 2 weeks. She does have a history of COPD. Upon arrival the patient is noted to be 93% on 2 L nasal cannula oxygen. She is 80% on room air. She is afebrile. She has no leukocytosis. Chest x-ray does demonstrate a increasing infiltrate in the right upper lobe. Patient's EKG demonstrates no evidence of significant arrhythmia. The patient was noted to have an elevated D-dimer. Given the fact she has been on antibiotics for nearly 20 days, a CT chest pulmonary angiogram will be obtained. The patient has no evidence of pulmonary embolism she will be started on Levaquin and prednisone. The patient does have chronically elevated BNPs. She does not have evidence clinically of congestive heart failure. CT pulmonary angiogram was obtained and reviewed by myself and discussed with radiologist Dr. Anthony Cherry. Demonstrates no evidence of pulmonary embolism. The patient does have severe COPD. She does have progressive nodules. I informed the patient of the need for further workup for pulmonary nodules. The patient will follow up with her primary care provider. Differential Diagnosis: Differential diagnosis considered includes asthma, bronchitis, pneumonia, pulmonary embolism - Data Points Laboratory Results: Laboratory Results 11/03/18 12:56 11/03/18 12:56 03/23/19 03/23/19 03/23/19 12:56 12:56 12:56 WBC 5.56 10^3/uL 10^3/uL (3.80-9.50) RBC 4.80 10^6/uL 10^6/uL (4.18-5.33) Hgb 13.8 g/dL g/dL (12.6-16.3) Hct 43.2 % % (38.0-47.0) MCV 90.0 fL fL (81.5-99.8) MCH 28.8 pg pg (27.9-34.1) MCHC 31.9 g/dL L g/dL (32.4-36.7) RDW 14.5 % % (11.5-15.2) Plt Count 150 10^3/uL 10^3/uL (150-400) MPV 10.2 fL fL (8.7-11.7) Neut % (Auto) 71.8 % % (39.3-74.2) Lymph % (Auto) 10.8 % L % (15.0-45.0) Stoddard % (Auto) 14.0 % H % (4.5-13.0) Eos % (Auto) 2.7 % % (0.6-7.6) Baso % (Auto) 0.2 % L % (0.3-1.7) Nucleat RBC Rel Count 0.0 % % (0.0-0.2) Absolute Neuts (auto) 3.99 10^3/uL 10^3/uL (1.70-6.50) Absolute Lymphs (auto) 0.60 10^3/uL L 10^3/uL (1.00-3.00) Absolute Monos (auto) 0.78 10^3/uL 10^3/uL (0.30-0.80) Absolute Eos (auto) 0.15 10^3/uL 10^3/uL (0.03-0.40) Absolute Basos (auto) 0.01 10^3/uL L 10^3/uL (0.02-0.10) Absolute Nucleated RBC 0.00 10^3/uL 10^3/uL (0-0.01) Immature Gran % 0.5 % % (0.0-1.1) Immature Gran # 0.03 10^3/uL 10^3/uL (0.00-0.10) D-Dimer 2.02 ug/mLFEU H ug/mLFEU (0.00-0.50) Sodium 137 mEq/L mEq/L (135-145) Potassium 4.2 mEq/L mEq/L (3.5-5.2) Chloride 99 mEq/L mEq/L (97-110) Carbon Dioxide 29 mEq/l mEq/l (22-31) Anion Gap 9 mEq/L mEq/L (6-14) BUN 33 mg/dL H mg/dL (7-23) Creatinine 0.8 mg/dL mg/dL (0.6-1.0) Estimated GFR > 60 Glucose 88 mg/dL mg/dL (70-100) Calcium 8.9 mg/dL mg/dL (8.5-10.4) NT-Pro-B Natriuret Pep 1670 pg/mL H pg/mL (0-450) Departure - Departure Disposition: Home, Routine, Self-Care Clinical Impression: Pneumonia, Chronic obstructive pulmonary disease with acute exacerbation Condition: Good Instructions: Pneumonia (ED) Additional Instructions: 1. Please take prednisone and antibiotics as prescribed. 2. Please schedule a follow-up appointment with your primary care provider. Your CT scan today does demonstrate an increased number of pulmonary nodules which will require further workup and potentially biopsy for further characterization. Please make a follow-up appointment with Dr. Au from Pulmonary. 3. There is no evidence of a blood clot. Referrals: Estela Grimaldo MD [place] [place] - As per Instructions Fili Au MD [Medical Doctor] - As per Instructions
--- NOTE | 2018-11-03 12:55 | CPEKG ---
Test Reason : OPEN Blood Pressure : / mmHG Vent. Rate : 089 BPM Atrial Rate : 087 BPM P-R Int : 146 ms QRS Dur : 074 ms QT Int : 389 ms P-R-T Axes : 088 080 059 degrees QTc Int : 474 ms Sinus rhythm Atrial premature complexes Confirmed by Fili Covarrubias ([id number]) on 11/03/2018 12:55:19 PM Referred By: Fili Covarrubias Confirmed By:Fili Covarrubias
[2018-11-03 13:07] LABS: PLATELET COUNT 150 10^3/uL (150-400)
[2018-11-03] MEDS ORDERED: IOPAMIDOL (ISOVUE-370) 150 ML BTL IV ONE (13:32)
[2018-11-03 14:24] VITALS: BP 113/68
--- NOTE | 2018-11-08 08:52 | CPEKG ---
Test Reason : OPEN Blood Pressure : / mmHG Vent. Rate : 087 BPM Atrial Rate : 092 BPM P-R Int : 146 ms QRS Dur : 073 ms QT Int : 384 ms P-R-T Axes : 056 087 066 degrees QTc Int : 462 ms Sinus rhythm Atrial premature complexes Probable left atrial enlargement Borderline right axis deviation Minimal ST elevation, anterior leads ST changes are new in comparison to prior Confirmed by Jayy Calvillo ([id number]) on 11/08/2018 8:51:38 AM Referred By: Fili Covarrubias Confirmed By:Jayy Calvillo
== END 2018-11-03 14:43 | disposition home or self-care (01) ==
DX: J18.9 Pneumonia, unspecified organism (principal); J44.1 Chronic obstructive pulmonary disease with (acute) exacerbation; J90 Pleural effusion, not elsewhere classified
CPT/HCPCS: 71046; 71275; 93005; 99285; Q9967; 84484-ER

== ENCOUNTER 2018-11-12 12:25 | Inpatient (IN) | payer OTHER ==
--- NOTE | 2018-11-12 13:17 | EDPHY ---
H & P Stated Complaint: SOB increasing over last 3 days Time Seen by Provider: 11/12/18 12:44 HPI/ROS: CHIEF COMPLAINT: Shortness of breath HISTORY OF PRESENT ILLNESS: 83-year-old female with COPD presents with shortness of breath. Onset of a cough and congestion 10 days ago. She was seen in this emergency department and placed on prednisone. She initially felt somewhat better. Gradually increasing shortness of breath over the past 3 days. Now short of breath at rest and using home oxygen around the clock. She usually uses oxygen 2 L by nasal cannula at night. No cough and no fever now. No chest pain. REVIEW OF SYSTEMS: complete 10 point ROS reviewed and is negative except for the noted elements in the HPI - Personal History Current Tetanus/Diphtheria Vaccine: Yes Current Tetanus Diphtheria and Acellular Pertussis (TDAP): Yes - Medical/Surgical History Hx Asthma: No Hx Chronic Respiratory Disease: Yes Hx Diabetes: No Hx Cardiac Disease: No Hx Renal Disease: No Hx Cirrhosis: No Hx Alcoholism: No Hx HIV/AIDS: No Hx Splenectomy or Spleen Trauma: No Other PMH: Thyroid CA, COPD, PNA - Social History Smoking Status: Former smoker Alcohol Use: Sober - Physical Exam Exam: General Appearance: Alert, pleasant, tachypneic, pursed lip breathing Eyes: Pupils equal and round, no conjunctival pallor ENT, Mouth: Mucous membranes moist Neck: Normal inspection Respiratory: Lungs are clear to auscultation, no wheezing Cardiovascular: Regular rate and rhythm Gastrointestinal: Abdomen is soft and nontender Neurological: A&O, nonfocal, normal gait Skin: Warm and dry Extremities: Normal inspection Psychiatric: Mood and affect normal Constitutional: Initial Vital Signs Temperature (C) 36.6 C 11/12/18 12:31 Respiratory Rate 18 11/12/18 12:31 Blood Pressure 116/71 11/12/18 12:31 O2 Delivery Mode Nasal Cannula O2 (L/minute) 4 Allergies/Adverse Reactions: No Known Allergies Allergy (Verified 11/03/18 11:49) Home Medications: Medication Instructions Recorded Aspirin [Aspirin 81mg (*)] 81 mg PO HS 04/13/17 Calcium Carbonate/Vitamin D2 1 each PO DAILY18 04/13/17 [Oyster Shell Calcium-Vit D Tab] Cholecalciferol Vit D3 [Vitamin D3 2,000 units PO DAILY18 04/13/17 2000 units tab (OTC)] Multivitamins [Multivitamin (*)] 1 each PO BID 04/13/17 Levothyroxine [Synthroid 112 mcg 112 mcg PO DAILY06 tab 05/07/17 (*)] Rosuvastatin Calcium [Crestor 5mg] 5 mg PO DAILY18 09/12/17 Acetamn/Diphenhydramine 500/25 1 each PO HS PRN 11/12/18 [Tylenol PM (*)] Triamterene/Hydrochlorothiazid 1 each PO MWF 11/12/18 [Triamterene-Hctz 37.5-25 mg Tb] predniSONE [prednisone 20mg (RX)] 10 tab PO DAILY 11/12/18 Medical Decision Making - Diagnostics EKG Interpretation: EKG interpreted by me reveals sinus rhythm, multiple PACs, a poor R-wave progression. Interpretation: Abnormal EKG Imaging Results: CXR: COPD Imaging: I viewed and interpreted images myself ED Course/Re-evaluation: This patient presents with worsening shortness of breath and hypoxia. Declines nebs/inhalers, as they haven't worked for her in past. Solumedrol 125mg IV given. Chest x-ray reveals no evidence of infiltrate an EKG is unremarkable. Old medical record reviewed. The patient was seen 1 week ago and had an elevated D-dimer. CT pulmonary angiogram revealed severe COPD; no evidence of pulmonary embolism. D-dimer is elevated again today. Repeat CTA chest not indicated today. Will admit for further evaluation. SOB most likely secondary to COPD. Differential Diagnosis: Differential diagnosis includes though it is not limited to pneumonia, pneumothorax, pulmonary embolism, aortic dissection, pericarditis, acute coronary syndrome. - Data Points Laboratory Results: Laboratory Results 11/12/18 13:27 11/12/18 13:27 Medications Given: Albuterol/Ipratropium (Duoneb) 3 ml IH Q6HRS [facility]TER Stop: 05/12/19 17:59 Last Admin: 11/13/18 21:57 Dose: 3 ml Aspirin (Aspirin) 81 mg PO HS WALTER Stop: 05/11/19 20:59 Last Admin: 11/13/18 20:32 Dose: 81 mg Calcium/Vitamin D (Calcium Carb W/Vit D) 500 mg PO DAILY@1800 [facility]ALTER Stop: 05/11/19 17:59 Last Admin: 11/13/18 17:47 Dose: Not Given Cholecalciferol (Vitamin D) 2,000 units PO DAILY18 [facility] Stop: 05/11/19 17:59 Last Admin: 11/13/18 17:43 Dose: 2,000 units Enoxaparin Sodium (Lovenox) 40 mg SC DAILY WALTER Stop: 05/12/19 08:59 Last Admin: 11/13/18 09:22 Dose: 40 mg Fluconazole (Diflucan) 150 mg PO DAILY [facility]ALTER Stop: 12/13/18 11:44 Last Admin: 11/13/18 11:49 Dose: 150 mg Levofloxacin/Dextrose (Levaquin 750 Mg (Premix)) 150 mls @ 100 mls/hr IV Q2D WALTER PRN Reason: Protocol Stop: 12/12/18 15:59 Last Admin: 11/12/18 16:06 Dose: 150 mls Levothyroxine Sodium (Synthroid) 112 mcg PO DAILY06 [facility]TER Stop: 05/12/19 05:59 Last Admin: 11/13/18 05:36 Dose: 112 mcg Multivitamins (Tab-A-Dominick) 1 each PO BID WALTER Stop: 05/11/19 20:59 Last Admin: 11/13/18 20:32 Dose: 1 each Nystatin (Mycostatin Oral Liquid) 500,000 unit PO QID WALTER PRN Reason: Protocol Stop: 12/12/18 20:59 Last Admin: 11/13/18 20:32 Dose: 500,000 unit Prednisone (Prednisone) 40 mg PO DAILY [facility]ALTER Stop: 05/12/19 08:59 Last Admin: 11/13/18 09:22 Dose: 40 mg Rosuvastatin Calcium (Crestor) 5 mg PO DAILY@1800 [facility] Stop: 05/11/19 17:59 Last Admin: 11/13/18 17:43 Dose: 5 mg Discontinued Medications Sodium Chloride (Ns) 1,000 mls @ 100 mls/hr IV CONT [facility]ALTER Stop: 11/13/18 01:29 Last Admin: 11/12/18 16:06 Dose: 1,000 mls Methylprednisolone Sodium Succinate (Solu-Medrol) 125 mg IVP EDNOW ONE Stop: 11/12/18 14:14 Last Admin: 11/12/18 14:52 Dose: 125 mg Methylprednisolone Sodium Succinate (Solu-Medrol) 60 mg IVP Q6HRS WALTER Stop: 11/12/18 21:01 Last Admin: 11/12/18 21:21 Dose: 60 mg Point of Care Test Results: Chemistry 11/12/18 13:32 POC Troponin I 0.01 ng/mL ng/mL (0.00-0.08) Departure - Departure Disposition: [facility] Inpatient Acute Clinical Impression: Chronic obstructive pulmonary disease with acute exacerbation Condition: Fair
[2018-11-12 13:40] LABS: PLATELET COUNT 225 10^3/uL (150-400)
[2018-11-12] MEDS ORDERED: methylPREDNISolone SOD SUCC 125 MG/2 ML VIAL IVP ONE (14:13)
[2018-11-12] MEDS ORDERED: ONDANSETRON 4 MG/2 ML VIAL IVP PRN (15:08)
[2018-11-12] MEDS ORDERED: ONDANSETRON DISINTEGRATING 4 MG TAB PO PRN (15:08)
[2018-11-12] MEDS ORDERED: ACETAMINOPHEN 325 MG TAB PO PRN (15:08)
[2018-11-12] MEDS ORDERED: IPRATROPIUM/ALBUTEROL 3 ML DEYVIAL IH PRN (15:16)
--- NOTE | 2018-11-12 15:20 | PDGENHP ---
<Aimee Mina - Last Filed: 11/12/18 16:45> History and Physical - Chief Complaint Hypoxemia - History of Present Illness 83 y/o female w/ hx of COPD and thyroid cancer presents w/ hypoxemia and shortness of breath. Approximately a few weeks ago, she had congestion and productive cough w/yellow sputum. She was prescribed Augmentin by her PCP and then a week later prescribed doxycycline. She presented to this ED last week w/ similar symptoms of SOB and hypoxemia, needing to continually wear her home oxygen instead of only at night (set at 2L NC). She was given steroids and prescribed Levaquin - she never took the Levaquin and weaned herself off steroids inappropriately and not as what was prescribed (she weaned herself off steroids faster than what was recommended). Chest CTA last week negative for PE , CXR revealing increasing consolidation right upper lobe suggestive of pulmonary edema or PNA and small right pleural effusion. She is here w/ continued SOB and hypoxemia. Denies nausea, vomiting, fever, chills, CP, palpitations. She is being admitted for further treatment and monitoring. History Information - Allergies/Home Medication List Allergies/Adverse Reactions: No Known Allergies Allergy (Verified 11/03/18 11:49) Home Medications: Aspirin [Aspirin 81mg (*)] 81 mg PO HS 04/13/17 [Last Taken 11/11/18] Calcium Carbonate/Vitamin D2 [Oyster Shell Calcium-Vit D Tab] 1 each PO DAILY18 04/13/17 [Last Taken 09/11/17] Cholecalciferol Vit D3 [Vitamin D3 2000 units tab (OTC)] 2,000 units PO DAILY18 04/13/17 [Last Taken 11/11/18] Multivitamins [Multivitamin (*)] 1 each PO BID 04/13/17 [Last Taken 09/11/17 21: 00] Rosuvastatin Calcium [Crestor 5mg] 5 mg PO DAILY18 09/12/17 [Last Taken 11/11/18 ] Acetamn/Diphenhydramine 500/25 [Tylenol PM (*)] 1 each PO HS PRN 11/12/18 [Last Taken Unknown] Triamterene/Hydrochlorothiazid [Triamterene-Hctz 37.5-25 mg Tb] 1 each PO MWF [Last Taken 11/12/18] predniSONE [prednisone 20mg (RX)] 10 tab PO DAILY 11/12/18 [Last Taken 11/12/18 20mg] I have personally reviewed and updated: family history, medical history, social history, surgical history - Past Medical History cancer (Thyroid), COPD, pneumonia - Surgical History Reports: thyroid surgery - Family History Positive for: non-pertinent - Social History Smoking Status: Former smoker Alcohol Use: Rarely Drug Use: None Additional social history: Lives independently, friend at bedside w/pt Review of Systems Review of Systems: ROS: 10pt was reviewed & negative except for what was stated in HPI & below Physical Exam Physical Exam: Lab data and imaging reviewed. WBC: 10.51 CXR: No new consolidation, hyperexpanded lungs EKG: Sinus arrhythmia, normal axis Temp Pulse Resp BP Pulse Ox 36.6 C 69 18 118/76 95 11/12/18 12:31 11/12/18 14:58 11/12/18 14:58 11/12/18 14:58 11/12/18 14:58 O2 (L/minute) 4 Constitutional: appears nourished, not in pain, other (Standing upright because she feels like she breathes better, able to complete full sentences w/o being out of breath, does not appear to be in distress) Eyes: PERRL, anicteric sclera, EOMI Ears, Nose, Mouth, Throat: hearing normal, ears appear normal, oral thrush, dry mucous membranes Cardiovascular: regular rate and rhythym, no murmur, rub, or gallop, No edema Peripheral Pulses: 2+: dorsalis-pedis (R) (Radial 2+), dorsalis-pedis (L) ( Radial 2+) Respiratory: reduced air movement Gastrointestinal: normoactive bowel sounds, soft, non-tender abdomen, no palpable masses Genitourinary: no bladder fullness, no bladder tenderness Skin: warm, normal color, no rashes or abrasions, no fluctuance, no induration, No mottled Musculoskeletal: full muscle strength, no muscle tenderness, normal joint ROM, no joint effusions Neurologic: AAOx3, sensation intact bilaterally, CN II-XII Intact Psychiatric: interacting appropriately, not anxious, not encephalopathic, thought process linear Lymph, Heme, Immunologic: no cervical LAD, no supraclavicular LAD Lab Data & Imaging Review 11/12/18 13:27 11/12/18 13:27 WBC 10.51 10^3/uL (3.80-9.50) H 11/12/18 13:27 RBC 5.50 10^6/uL (4.18-5.33) H 11/12/18 13:27 Hgb 15.7 g/dL (12.6-16.3) 11/12/18 13:27 Hct 49.8 % (38.0-47.0) H 11/12/18 13:27 MCV 90.5 fL (81.5-99.8) 11/12/18 13:27 MCH 28.5 pg (27.9-34.1) 11/12/18 13:27 MCHC 31.5 g/dL (32.4-36.7) L 11/12/18 13:27 RDW 14.4 % (11.5-15.2) 11/12/18 13:27 Plt Count 225 10^3/uL (150-400) 11/12/18 13:27 MPV 9.8 fL (8.7-11.7) 11/12/18 13:27 Neut % (Auto) Not Reported 11/12/18 13:27 Lymph % (Auto) Not Reported 11/12/18 13:27 [place] % (Auto) Not Reported 11/12/18 13:27 Eos % (Auto) Not Reported 11/12/18 13:27 Baso % (Auto) Not Reported 11/12/18 13:27 Nucleat RBC Rel Count Not Reported 11/12/18 13:27 Absolute Neuts (auto) Not Reported 11/12/18 13:27 Absolute Lymphs (auto) Not Reported 11/12/18 13:27 Absolute Monos (auto) Not Reported 11/12/18 13:27 Absolute Eos (auto) Not Reported 11/12/18 13:27 Absolute Basos (auto) Not Reported 11/12/18 13:27 Absolute Nucleated RBC Not Reported 11/12/18 13:27 Immature Gran % Not Reported 11/12/18 13:27 Seg Neutrophils % 60.6 % 11/12/18 13:27 Band Neutrophils % 31.3 % 11/12/18 13:27 Lymphocytes % 3.0 % 11/12/18 13:27 Monocytes % 5.1 % 11/12/18 13:27 Eosinophils % 0.0 % 11/12/18 13:27 Basophils % 0.0 % 11/12/18 13:27 Metamyelocytes % 0.0 % 11/12/18 13:27 Myelocytes % 0.0 % 11/12/18 13:27 Promyelocytes % 0.0 % 11/12/18 13:27 Blast Cells % 0.0 % 11/12/18 13:27 Immature Gran # Not Reported 11/12/18 13:27 Absolute Seg Neuts 6.37 10^3/uL (1.70-6.50) 11/12/18 13:27 Absolute Band Neuts 3.29 10^3/uL (0.00-0.70) H 11/12/18 13:27 Absolute Lymphocytes 0.32 10^3/uL (1.00-3.00) L 11/12/18 13:27 Absolute Monocytes 0.54 10^3/uL (0.30-0.80) 11/12/18 13:27 Absolute Eosinophils 0.00 10^3/uL (0.03-0.40) L 11/12/18 13:27 Absolute Basophils 0.00 10^3/uL (0.02-0.10) L 11/12/18 13:27 Absolute Metamyelocyte 0.00 10^3/mL (0.00-0.00) 11/12/18 13:27 Absolute Myelocytes 0.00 10^3/mL (0.00-0.00) 11/12/18 13:27 Absolute Promyelocytes 0.00 10^3/uL (0.00-0.00) 11/12/18 13:27 Absolute Plasma Cells 0.00 10^3/uL (0.00-0.00) 11/12/18 13:27 Nucleated RBCs 0 /100 WBC (0-0) 11/12/18 13:27 RBC/WBC/PLT Morphology NORMAL (NORMAL) 11/12/18 13:27 Absolute Blast Cells 0.00 10^3/uL (0.00-0.00) 11/12/18 13:27 Plasma Cells % 0.0 % 11/12/18 13:27 Platelet Estimate ADEQUATE (ADEQ) 11/12/18 13:27 D-Dimer 3.98 ug/mLFEU (0.00-0.50) H 11/12/18 13:27 Sodium 137 mEq/L (135-145) 11/12/18 13:27 Potassium 4.1 mEq/L (3.5-5.2) 11/12/18 13:27 Chloride 92 mEq/L (97-110) L 11/12/18 13:27 Carbon Dioxide 36 mEq/l (22-31) H 11/12/18 13:27 Anion Gap 9 mEq/L (6-14) 11/12/18 13:27 BUN 28 mg/dL (7-23) H 11/12/18 13:27 Creatinine 0.6 mg/dL (0.6-1.0) 11/12/18 13:27 Estimated GFR > 60 11/12/18 13:27 Glucose 132 mg/dL (70-100) H 11/12/18 13:27 Calcium 9.1 mg/dL (8.5-10.4) 11/12/18 13:27 POC Troponin I 0.01 ng/mL (0.00-0.08) 11/12/18 13:32 NT-Pro-B Natriuret Pep 850 pg/mL (0-450) H 11/12/18 13:27 Assessment & Plan Plan: 83 y/ female presenting w/ continued hypoxemia and shortness of breath. She no longer feels congested. She is hemodynamically stable w/vitals of 127/81 BP, 75 HR, 18 Resp, 98% 4L NC, 36.6c. #Acute on chronic obstructive pulmonary disease exacerbation: Presenting to the ED, she was 80%RA. Previous CXR show possible consolidation to right upper lobe either an edema or PNA and a small pleural effusion. Chest CTA was unremarkable. D-Dimer has been elevated on both ED admissions. I do not suspect this is PE; imaging last week was unremarkable. D-dimer possibly can be elevated d/t age and suspected mass. -Received Solu-Medrol IVP; cont x 1 then prednisone PO in AM. Holding home prednisone dose. -Duoneb tx Q6H -Levaquin IV Q48H d/t CrCl. Will receive dose today, recheck CrCl in AM. Will receive IVF x 1 bag to help perfuse kidneys. Additionally, she appears mildly dehydrated w/dry mucous membrane and tenting. 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 Will prescribe nystatin. #HTN: stable. On triamterene/HCTZ Diet: Regular Code: Limited (no chest compressions) VTE ppx: Lovenox subq Dispo: Admit to obs <Alanis Perez - Last Filed: 11/12/18 17:12> History and Physical - History of Present Illness Review of Systems Review of Systems: Physical Exam Physical Exam: Temp Pulse Resp BP Pulse Ox 36.6 C 75 18 127/81 H 98 11/12/18 15:27 11/12/18 15:27 11/12/18 15:27 11/12/18 15:27 11/12/18 15:27 O2 (L/minute) 4 Lab Data & Imaging Review 11/12/18 13:27 11/12/18 13:27 WBC 10.51 10^3/uL (3.80-9.50) H 11/12/18 13:27 RBC 5.50 10^6/uL (4.18-5.33) H 11/12/18 13:27 Hgb 15.7 g/dL (12.6-16.3) 11/12/18 13:27 Hct 49.8 % (38.0-47.0) H 11/12/18 13:27 MCV 90.5 fL (81.5-99.8) 11/12/18 13:27 MCH 28.5 pg (27.9-34.1) 11/12/18 13:27 MCHC 31.5 g/dL (32.4-36.7) L 11/12/18 13:27 RDW 14.4 % (11.5-15.2) 11/12/18 13:27 Plt Count 225 10^3/uL (150-400) 11/12/18 13:27 MPV 9.8 fL (8.7-11.7) 11/12/18 13:27 Neut % (Auto) Not Reported 11/12/18 13:27 Lymph % (Auto) Not Reported 11/12/18 13:27 [place] % (Auto) Not Reported 11/12/18 13:27 Eos % (Auto) Not Reported 11/12/18 13:27 Baso % (Auto) Not Reported 11/12/18 13:27 Nucleat RBC Rel Count Not Reported 11/12/18 13:27 Absolute Neuts (auto) Not Reported 11/12/18 13:27 Absolute Lymphs (auto) Not Reported 11/12/18 13:27 Absolute Monos (auto) Not Reported 11/12/18 13:27 Absolute Eos (auto) Not Reported 11/12/18 13:27 Absolute Basos (auto) Not Reported 11/12/18 13:27 Absolute Nucleated RBC Not Reported 11/12/18 13:27 Immature Gran % Not Reported 11/12/18 13:27 Seg Neutrophils % 60.6 % 11/12/18 13:27 Band Neutrophils % 31.3 % 11/12/18 13:27 Lymphocytes % 3.0 % 11/12/18 13:27 Monocytes % 5.1 % 11/12/18 13:27 Eosinophils % 0.0 % 11/12/18 13:27 Basophils % 0.0 % 11/12/18 13:27 Metamyelocytes % 0.0 % 11/12/18 13:27 Myelocytes % 0.0 % 11/12/18 13:27 Promyelocytes % 0.0 % 11/12/18 13:27 Blast Cells % 0.0 % 11/12/18 13:27 Immature Gran # Not Reported 11/12/18 13:27 Absolute Seg Neuts 6.37 10^3/uL (1.70-6.50) 11/12/18 13:27 Absolute Band Neuts 3.29 10^3/uL (0.00-0.70) H 11/12/18 13:27 Absolute Lymphocytes 0.32 10^3/uL (1.00-3.00) L 11/12/18 13:27 Absolute Monocytes 0.54 10^3/uL (0.30-0.80) 11/12/18 13:27 Absolute Eosinophils 0.00 10^3/uL (0.03-0.40) L 11/12/18 13:27 Absolute Basophils 0.00 10^3/uL (0.02-0.10) L 11/12/18 13:27 Absolute Metamyelocyte 0.00 10^3/mL (0.00-0.00) 11/12/18 13:27 Absolute Myelocytes 0.00 10^3/mL (0.00-0.00) 11/12/18 13:27 Absolute Promyelocytes 0.00 10^3/uL (0.00-0.00) 11/12/18 13:27 Absolute Plasma Cells 0.00 10^3/uL (0.00-0.00) 11/12/18 13:27 Nucleated RBCs 0 /100 WBC (0-0) 11/12/18 13:27 RBC/WBC/PLT Morphology NORMAL (NORMAL) 11/12/18 13:27 Absolute Blast Cells 0.00 10^3/uL (0.00-0.00) 11/12/18 13:27 Plasma Cells % 0.0 % 11/12/18 13:27 Platelet Estimate ADEQUATE (ADEQ) 11/12/18 13:27 D-Dimer 3.98 ug/mLFEU (0.00-0.50) H 11/12/18 13:27 Sodium 137 mEq/L (135-145) 11/12/18 13:27 Potassium 4.1 mEq/L (3.5-5.2) 11/12/18 13:27 Chloride 92 mEq/L (97-110) L 11/12/18 13:27 Carbon Dioxide 36 mEq/l (22-31) H 11/12/18 13:27 Anion Gap 9 mEq/L (6-14) 11/12/18 13:27 BUN 28 mg/dL (7-23) H 11/12/18 13:27 Creatinine 0.6 mg/dL (0.6-1.0) 11/12/18 13:27 Estimated GFR > 60 11/12/18 13:27 Glucose 132 mg/dL (70-100) H 11/12/18 13:27 Calcium 9.1 mg/dL (8.5-10.4) 11/12/18 13:27 POC Troponin I 0.01 ng/mL (0.00-0.08) 11/12/18 13:32 NT-Pro-B Natriuret Pep 850 pg/mL (0-450) H 11/12/18 13:27 Assessment & Plan Assessment: Chronic obstructive pulmonary disease with acute exacerbation (Acute) Plan: Patient seen and evaluated independently and care plan reviewed with ANGELICA Mina, agree with her assessment and plan as outlined above. Please see separate documentation for further details.
[2018-11-12] MEDS ORDERED: NS 1,000 ML IV SCH (15:30)
--- NOTE | 2018-11-12 16:37 | HOSPPROG ---
Hospitalist Progress Note Assessment/Plan: 83 yo F with PMH of COPD, chronic nocturnal hypoxia as well as thyroid cancer presenting with sob and acute on chronic hypoxic respiratory failure # acute on chronic hypoxic respiratory failure: at baseline only uses o2 at night but currently requiring 4L of o2 to maintain sats in mid to high 90s, no e /o pna on imaging, does have decreased BS and with severe emphysema this is presumably due to copd exacerbation as next. Does have elevated d dimer but was elevated 1 week ago as well at which time she had a CTA negative for PE so will not repeat today. # copd exacerbation: as above, started on solumedrol, duonebs, albuterol nebs and levaquin, she is followed by Dr. Geiger for her COPD chronically. # pulmonary nodules: she was noted to have a new spiculated lung mass RLL and enlarging rounded solid mass lingular region on her recent CT--in comparison to prior films it seems as though this were also present previously and were followed by Dr. Geiger who notes they were most consistent with old granulomatous disease and did not require further w/u--recommend more recent films be evaluated and compared to olds with DR. Geiger to be sure nothing appears new # thyroid cancer: sp surgery and radiation with previous swallowing issues that sound as though they have resolved, will ask OIL PRODUCER to evaluate # HTN: bp has been slightly on the low end here, on triamterene/hctz at home # HLD: continue statin # Limited resuscitation # observation status Patient new to my care. Old records reviewed and summarized as above. Care plan reviewed with ER doctor and ANGELICA Mina, please see separate H&P for further details. 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
[2018-11-12] MEDS: ROSUVASTATIN CALCIUM 10 MG TAB PO SCH (17:46)
[2018-11-12] MEDS: CHOLECALCIFEROL VIT D3 2,000 UNITS TAB/CAP PO SCH (17:46)
[2018-11-12] MEDS: CALCIUM CARB W/VIT D 500 MG TAB PO SCH (17:48)
[2018-11-12] MEDS ORDERED: methylPREDNISolone SOD SUCC 125 MG/2 ML VIAL IVP SCH (21:00)
[2018-11-12] MEDS: MULTIVITAMINS 1 EACH TAB PO SCH (21:21)
[2018-11-12] MEDS: NYSTATIN SUSP 500000 UNIT/5 ML UD LIQ PO SCH (21:21)
[2018-11-12] MEDS: ASPIRIN 81 MG CHEWABLE TAB PO SCH (21:21)
[2018-11-13] MEDS: LEVOTHYROXINE 112 MCG TAB PO SCH (05:36)
[2018-11-13] MEDS: NYSTATIN SUSP 500000 UNIT/5 ML UD LIQ PO SCH ×4 (05:36→20:32)
[2018-11-13 05:47] LABS: PLATELET COUNT 192 10^3/uL (150-400)
[2018-11-13] MEDS: ENOXAPARIN 40 MG/0.4 ML SYR SC SCH (09:22)
[2018-11-13] MEDS: MULTIVITAMINS 1 EACH TAB PO SCH ×2 (09:22→20:32)
[2018-11-13] MEDS: predniSONE 20 MG TAB PO SCH (09:22)
--- NOTE | 2018-11-13 10:47 | HOSPPROG ---
Hospitalist Progress Note Assessment/Plan: 83 yo F with PMH of COPD, chronic nocturnal hypoxia as well as thyroid cancer presenting with sob and acute on chronic hypoxic respiratory failure. First encounter, chart reviewed. # acute on chronic hypoxic respiratory failure: -at baseline only uses o2 at night -currently requiring 4L of o2 to maintain sats in mid to high 90s -no e/o pna on imaging -does have decreased BS and with severe emphysema this is presumably due to copd exacerbation -Does have elevated d dimer but was elevated 1 week ago as well at which time she had a CTA negative for PE so will not repeat -consult Dr Cueto for further recs, D/W Dr Au # copd exacerbation: a -as above, started on solumedrol, duonebs, albuterol nebs and levaquin -she is followed by Dr. Geiger for her COPD chronically # pulmonary nodules: -she was noted to have a new spiculated lung mass RLL and enlarging rounded solid mass lingular region on her recent CT -comparison to prior films it seems as though this were also present previously -followed by Dr. Geiger who notes they were most consistent with old granulomatous disease and did not require further w/u -recommend more recent films be evaluated and compared to olds with DR. 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 Old records reviewed and summarized as above. Care plan reviewed with ER doctor and ANGELICA Mina, please see separate H&P for further details. Subjective: Still feels very SOB. No pain. Less coughing. Objective: Vital Signs Temp Pulse Resp BP Pulse Ox 36.4 C 67 16 107/66 97 11/13/18 08:00 11/13/18 08:00 11/13/18 08:00 11/13/18 08:00 11/13/18 08:00 Laboratory Results 11/13/18 04:36 11/13/18 04:34 11/12/18 11/13/18 11/14/18 05:59 05:59 05:59 Intake Total 250 Balance 250 - Physical Exam Constitutional: appears nourished, not in pain, No obese Eyes: PERRL, anicteric sclera, EOMI Ears, Nose, Mouth, Throat: moist mucous membranes, hearing normal, ears appear normal Cardiovascular: regular rate and rhythym, No JVD, No edema Respiratory: no respiratory distress, reduced air movement, No expiratory wheeze , No bronchial breath sounds Gastrointestinal: normoactive bowel sounds, No tenderness, No ascites Skin: warm, normal color, No mottled Musculoskeletal: normal joint ROM, no joint effusions, generalized weakness Neurologic: AAOx3 Psychiatric: interacting appropriately, not anxious, not encephalopathic, thought process linear ICD10 Worksheet Patient Problems: Problems Problem Status Onset 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
[2018-11-13] MEDS: FLUCONAZOLE 150 MG TAB PO SCH (11:49)
--- NOTE | 2018-11-13 11:57 | PDMN ---
Medical Necessity Medical necessity: Pt meets inpt criteria per MD order and MCG M-100,Chronic Obstructive Pulmonary Disease, A-2 days, 83 y/o w/hx COPD and thyroid ca admitted w/COPD exacerbation/acute on chronic hypoxic resp failure (80% on RA) requiring 4L O2 to keep sats in mid 90's (baseline is O2 at night only). Pt presented w/ongoing SOB and hypoxemia, recently treated as outpt w/abx's for cough/congestion, then presented to ED last week w/similar symptoms of cough/SOB /hypoxemia, was prescribed Levaquin which she did not take and oral steroids which she weaned herself off of faster than recommended. IV Levaquin, Pt cont to feel very SOB today, still needing 4L O2. Pulm consult pending, CT shows new speculated lung mass RLL and enlarging solid mass lingular region. Anticipate> 2MN for further eval/management of above.
--- NOTE | 2018-11-13 11:59 | ASMTCMCOM ---
CM Note CM Note Notes: Chart review conducted by CM, and CM also spoke with pt's RN. Pt lives independently and has niece locally listed in chart and daughter out of state. Pt admitted for acute hypoxic respiratory failure. Pulmonology consulted today. PT has cleared pt for "home with supervision". Pt not likely to dc today or tomorrow. CM to follow. D/C Plan: TBD Date Signed: 11/13/2018 11:58 AM Electronically Signed By:Marilee Hicks
[2018-11-13] MEDS: IPRATROPIUM/ALBUTEROL 3 ML DEYVIAL IH SCH ×2 (17:29→21:57)
--- NOTE | 2018-11-13 17:34 | GCON ---
[f rep st] CONSULTATION PULMONARY/CRITICAL CARE CONSULTATION DATE OF CONSULTATION: 11/13/2018 REFERRING PHYSICIAN: Fany García NP REASON FOR REFERRAL: Evaluation and management of COPD exacerbation. HISTORY: The patient is an 83-year-old woman with a history of COPD, seen by Dr. Geiger since 2000. She has been fairly stable with intermittent exacerbations over the last 15-20 years. She was last s een by Dr. Geiger in March, at which time he retried starting her on Symbicort, although she was not able to tolerate this due to thrush, so she is not been using inhalers. She uses albuterol at night and got an Inogen concentrator to use p.r.n. during the day. She was in her usual state of health, a ble to be fairly active, when a few weeks ago she started developing some chest congestion and a prod uctive cough with discolored sputum. She was seen by her PCP and prescribed Augmentin, followed by d oxycycline. She was seen in the ED about 10 days ago with improving cough, but worsening dyspnea and hypoxemia. A CT scan of the chest was done and was negative for pulmonary embolism, but confirmed t he presence of a severe emphysema. She was prescribed a prednisone taper and Levaquin. She never to ok the Levaquin, but took the prednisone taper, than extended that prednisone taper because she was n ot feeling much better. She presented to the hospital yesterday with persistent dyspnea as well as h ypoxemia. She denies any fevers or chills, and has minimal residual cough. Here in the hospital, maria isabel truong was started on Levaquin and prednisone as well as p.r.n. DuoNebs, and she does not particularly fee l better. She is using oxygen at all times. PAST MEDICAL HISTORY: Thyroid cancer, COPD. MEDICATIONS: At the time of admission include, aspirin, Crestor, Dyazide, and prednisone. ALLERGIES: None. SOCIAL HISTORY: The patient has about a 40 pack-year history of smoking, stopped about 25 years ago. She lives independently. FAMILY HISTORY: Unremarkable. REVIEW OF SYSTEMS: A 10-point review of systems adds nothing to the history of present illness. PHYSICAL EXAMINATION: GENERAL: The patient is awake, alert, in no acute distress. VITAL SIGNS: A blood pressure is 125/62, with a heart rate of 86. She is afebrile. Oxygen saturations are 97% on 4 L. HEENT: Normocephalic and atraumatic. No icterus. NECK: No JVD. Trachea is midline. CHEST: She has decreased breath sounds bilaterally, with some rales in both bases. CARDIAC: Regular rate and rhythm without murmur. ABDOMEN: Soft and nontender. Bowel sounds are present. EXTREMITIES: N o clubbing, cyanosis, or edema. NEURO: The patient is awake and alert. There are no gross motor or sensory deficits. LABORATORY: White blood count is 7.3, down from 10.5. A chemistry group is remarkable for a carbon dioxide level that is elevated at 35. An albumin is 2.5. A D-dimer is 4.0, up from 2.0 on 11/03. IMAGING: A chest x-ray shows hyperinflation with no new consolidation. There is some parenchymal th ickening in the bases. A CT scan from 11/03 shows extensive severe emphysema with some calcified nod ules in the right upper lobe and some new densities in the right lower lobe and some new nodular dens ities in the right lower lobe and lingula. Images reviewed by me. ASSESSMENT: Chronic obstructive pulmonary disease exacerbation with dyspnea. The patient is having significant dyspnea and hypoxemia following a respiratory tract infection with increased sputum produ ction, which has since improved. Her symptoms persist despite prednisone. She has been started on b ronchodilators here, but has not been taking them regularly and has not found them to be very helpful . She has also been started on Levaquin, although she has not had any improvement yet. Pulmonary em bolism is also a possibility, but she had negative CT scan 10 days ago when she had similar symptoms and a D-dimer which was also elevated at that point (although it is currently a bit higher). RECOMMENDATIONS: Change DuoNeb to scheduled. Continue prednisone and Levaquin. Levaquin can probab ly be changed to p.o. Consider discharging on Spiriva and/or possibly add dual LABA/LAMA such as Ano ro to optimize bronchodilation while avoiding inhaled steroids, since she did not really have a clini barbara response to them previously and had thrush. I would not pursue a CT scan of the chest now, but i f she has worsening or persistent symptoms, would consider reimaging. /[id number]/MODL
[2018-11-13] MEDS: CHOLECALCIFEROL VIT D3 2,000 UNITS TAB/CAP PO SCH (17:43)
[2018-11-13] MEDS: ROSUVASTATIN CALCIUM 10 MG TAB PO SCH (17:43)
[2018-11-13] MEDS: CALCIUM CARB W/VIT D 500 MG TAB PO SCH (17:47)
[2018-11-13] MEDS: ASPIRIN 81 MG CHEWABLE TAB PO SCH (20:32)
[2018-11-14] MEDS: IPRATROPIUM/ALBUTEROL 3 ML DEYVIAL IH SCH ×4 (05:41→22:27)
[2018-11-14] MEDS: LEVOTHYROXINE 112 MCG TAB PO SCH (06:25)
[2018-11-14] MEDS: NYSTATIN SUSP 500000 UNIT/5 ML UD LIQ PO SCH (06:25)
[2018-11-14] MEDS: ENOXAPARIN 40 MG/0.4 ML SYR SC SCH (08:02)
[2018-11-14] MEDS: FLUCONAZOLE 150 MG TAB PO SCH (08:02)
[2018-11-14] MEDS: predniSONE 20 MG TAB PO SCH (08:03)
[2018-11-14] MEDS: MULTIVITAMINS 1 EACH TAB PO SCH ×2 (08:03→20:00)
[2018-11-14] MEDS: TRIAMTERENE/HCTZ 37.5/25 1 EACH TAB PO SCH (08:03)
--- NOTE | 2018-11-14 08:35 | HOSPPROG ---
Hospitalist Progress Note Assessment/Plan: 83 yo F with PMH of COPD, chronic nocturnal hypoxia as well as thyroid cancer presenting with sob and acute on chronic hypoxic respiratory failure. First encounter, chart reviewed. # acute on chronic hypoxic respiratory failure -uses O2 only at night -now on 2 liters # copd exacerbation -prednisone, scheduled duoneb -Levaquin -recommendation on dc is to add Spiriva to her regimen and Anoro # pulmonary nodules -followed by Dr Geiger -concern for enlarging rounded mass # thyroid cancer -s/p radiation, surgery -speech to see for swallow concerns #thrush -Diflucan (is on Nystatin, but the Diflucan works better) # HTN -on triamterene/hctz at home # HLD - statin #plan; change Levaquin to oral, pharmacy to evaluate Diflucan and interactions w her medications Subjective: gurpreet isn't feeling much better today, is still very short of breath. Objective: Vital Signs Temp Pulse Resp BP Pulse Ox 36.5 C 102 H 18 117/54 L 97 11/14/18 08:00 11/14/18 08:00 11/14/18 08:00 11/14/18 08:03 11/14/18 08:00 Laboratory Results 11/13/18 04:36 11/13/18 04:34 11/13/18 11/14/18 11/15/18 05:59 05:59 05:59 Intake Total 250 500 Balance 250 500 - Physical Exam Constitutional: no apparent distress Eyes: PERRL Ears, Nose, Mouth, Throat: hearing normal Cardiovascular: regular rate and rhythym Respiratory: no respiratory distress, reduced air movement (poor expiratory phase) Musculoskeletal: generalized weakness Neurologic: AAOx3 Psychiatric: interacting appropriately ICD10 Worksheet Patient Problems: Problems Problem Status Onset Chronic obstructive pulmonary disease with acute exacerbation Acute COPD (chronic obstructive pulmonary disease) Acute HTN (hypertension) Acute 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
--- NOTE | 2018-11-14 15:17 | PDINTPN ---
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 Slightly better today, but not back to baseline. Likely due to a viral respiratory tract infection Plan: Check respiratory panel. If not doing better tomorrow, we will check spirometry to compare to prior values. If her spirometry is nearly back to baseline, would consider doing a CT angio to exclude PE. Will aim for discharge tomorrow if she is overall feeling the same or improved. 11/14/18 15:18 Subjective: Starting to feel a bit less dyspneic this afternoon, but still not back to baseline. Minimal cough. Objective: Vital Signs Temp Pulse Resp BP Pulse Ox 36.5 C 77 15 117/54 L 95 11/14/18 08:00 11/14/18 11:56 11/14/18 11:56 11/14/18 08:03 11/14/18 11:56 Laboratory Results 11/13/18 04:36 11/13/18 04:34 11/13/18 11/14/18 11/15/18 05:59 05:59 05:59 Intake Total 250 500 Balance 250 500 Physical Exam - Physical Exam General Appearance: alert, no apparent distress EENT: normal ENT inspection Neck: normal inspection Respiratory: decreased breath sounds, other (Course breath sounds in the bases) Cardiac/Chest: other (Sinus arrhythmia), No edema Abdomen: normal bowel sounds, non-tender, soft Skin: normal color, warm/dry Extremities: normal inspection Neuro/Psych: alert, normal mood/affect, oriented x 3 ICD10 Worksheet Patient Problems: Problems Problem Status Onset Chronic obstructive pulmonary disease with acute exacerbation Acute COPD (chronic obstructive pulmonary disease) Acute HTN (hypertension) Acute 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
[2018-11-14] MEDS: ROSUVASTATIN CALCIUM 10 MG TAB PO SCH (17:03)
[2018-11-14] MEDS: CHOLECALCIFEROL VIT D3 2,000 UNITS TAB/CAP PO SCH (17:03)
[2018-11-14] MEDS: CALCIUM CARB W/VIT D 500 MG TAB PO SCH (17:13)
[2018-11-14] MEDS: ASPIRIN 81 MG CHEWABLE TAB PO SCH (20:00)
[2018-11-15] MEDS: LEVOTHYROXINE 112 MCG TAB PO SCH (07:25)
[2018-11-15] MEDS: IPRATROPIUM/ALBUTEROL 3 ML DEYVIAL IH SCH ×4 (07:46→20:45)
[2018-11-15] MEDS: MULTIVITAMINS 1 EACH TAB PO SCH ×2 (08:47→20:31)
[2018-11-15] MEDS: ENOXAPARIN 40 MG/0.4 ML SYR SC SCH (08:47)
[2018-11-15] MEDS: predniSONE 20 MG TAB PO SCH (08:47)
[2018-11-15] MEDS: FLUCONAZOLE 150 MG TAB PO SCH (08:53)
[2018-11-15] MEDS ORDERED: LACTULOSE 20 GM/30 ML UDCUP PO PRN (09:19)
[2018-11-15] MEDS ORDERED: MAGNESIUM HYDROXIDE 30 ML UDCUP PO PRN (09:19)
[2018-11-15] MEDS ORDERED: BISACODYL 10 MG SUPP PR PRN (09:19)
[2018-11-15] MEDS: SENNOSIDES/DOCUSATE SODIUM TAB PO SCH ×2 (10:23→20:31)
[2018-11-15] MEDS: POLYETHYLENE GLYCOL 3350 17 GM PKT PO SCH (10:23)
--- NOTE | 2018-11-15 13:11 | PDINTPN ---
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 Slightly better today, but not back to baseline. Likely due to a viral respiratory tract infection, although respiratory panel negative Plan: Continue steroids, Levaquin, and bronchodilators. Will check spirometry to compare to prior values. If her spirometry is nearly back to baseline, would consider doing a CT angio to exclude PE. Will aim for discharge 1-2 days if she is overall feeling the same or improved. 11/15/18 13:09 Subjective: Still feels quite dyspneic and feels her heart pounding with minimal exertion. Scant sputum production, including a flek of blood-tinged sputum. Objective: Vital Signs Temp Pulse Resp BP Pulse Ox 36.4 C 110 H 15 137/68 H 90 L 11/15/18 07:27 11/15/18 10:25 11/15/18 10:25 11/15/18 07:27 11/15/18 07:27 Microbiology 11/14/18 16:29 Respiratory Panel (PCR) - Final Nasal, Sinus - Swab No Organism Detected By Pcr Laboratory Results 11/13/18 04:36 11/13/18 04:34 11/14/18 11/15/18 11/16/18 05:59 05:59 05:59 Intake Total 500 Balance 500 Microbiology 11/14/18 16:29 Nasal, Sinus - Swab Respiratory Panel (PCR) - Final No Organism Detected By Pcr Physical Exam - Physical Exam General Appearance: alert, no apparent distress EENT: normal ENT inspection Neck: normal inspection Respiratory: decreased breath sounds Cardiac/Chest: regular rate, rhythm, No edema Abdomen: normal bowel sounds, non-tender Skin: normal color, warm/dry Extremities: non-tender, normal inspection Neuro/Psych: alert, normal mood/affect, oriented x 3 ICD10 Worksheet Patient Problems: Problems Problem Status Onset Chronic obstructive pulmonary disease with acute exacerbation Acute COPD (chronic obstructive pulmonary disease) Acute HTN (hypertension) Acute 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
--- NOTE | 2018-11-15 15:03 | HOSPPROG ---
Hospitalist Progress Note Assessment/Plan: 83 yo F with PMH of COPD, chronic nocturnal hypoxia as well as thyroid cancer presenting with sob and acute on chronic hypoxic respiratory failure. # acute on chronic hypoxic respiratory failure -uses O2 only at night -now on 2-4 liters # copd exacerbation/emphysema -prednisone, scheduled duoneb -Levaquin -recommendation on dc is to add Spiriva to her regimen or Anoro -patient is very concerned she is worse than ever she has been, will get an echo for completeness -spirometry today # pulmonary nodules -followed by Dr Geiger -concern for enlarging rounded mass # thyroid cancer -s/p radiation, surgery -speech to see for swallow concerns #thrush -Diflucan (is on Nystatin, but the Diflucan works better) # HTN -on triamterene/hctz at home # HLD - statin #plan: echo today, appreciate DR Cueto Subjective: Mandi is still feeling very short of breath. Objective: Vital Signs Temp Pulse Resp BP Pulse Ox 36.4 C 110 H 15 137/68 H 90 L 11/15/18 07:27 11/15/18 10:25 11/15/18 10:25 11/15/18 07:27 11/15/18 07:27 Microbiology 11/14/18 16:29 Respiratory Panel (PCR) - Final Nasal, Sinus - Swab No Organism Detected By Pcr Laboratory Results 11/13/18 04:36 11/13/18 04:34 11/14/18 11/15/18 11/16/18 05:59 05:59 05:59 Intake Total 500 Balance 500 - Physical Exam Constitutional: not in pain, other (slender) Eyes: PERRL Ears, Nose, Mouth, Throat: hearing normal Cardiovascular: regular rate and rhythym, tachycardia Respiratory: no respiratory distress (poor expiratory phase), reduced air movement Skin: warm Musculoskeletal: generalized weakness Neurologic: AAOx3 Psychiatric: interacting appropriately ICD10 Worksheet Patient Problems: Problems Problem Status Onset Chronic obstructive pulmonary disease with acute exacerbation Acute COPD (chronic obstructive pulmonary disease) Acute HTN (hypertension) Acute 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
[2018-11-15] MEDS: CALCIUM CARB W/VIT D 500 MG TAB PO SCH (16:09)
[2018-11-15] MEDS: ROSUVASTATIN CALCIUM 10 MG TAB PO SCH (17:40)
[2018-11-15] MEDS: CHOLECALCIFEROL VIT D3 2,000 UNITS TAB/CAP PO SCH (17:40)
[2018-11-15] MEDS: ASPIRIN 81 MG CHEWABLE TAB PO SCH (20:31)
[2018-11-15] MEDS ORDERED: SENNOSIDES/DOCUSATE SODIUM TAB PO SCH (21:00)
[2018-11-16] MEDS: IPRATROPIUM/ALBUTEROL 3 ML DEYVIAL IH SCH ×3 (05:12→11:23)
[2018-11-16] MEDS: LEVOTHYROXINE 112 MCG TAB PO SCH ×3 (06:45→08:53)
[2018-11-16] MEDS ORDERED: METOPROLOL TARTRATE 5 MG/5 ML INJ IVP ONE ×2 (06:58→12:32)
[2018-11-16] MEDS ORDERED: METOPROLOL TARTRATE 5 MG/5 ML INJ ONE (07:00)
[2018-11-16] MEDS ORDERED: NS 500 ML IV ONE (07:07)
[2018-11-16] MEDS ORDERED: ADENOSINE 6 MG/2 ML VIAL IVP ONE (07:08)
--- NOTE | 2018-11-16 08:23 | HOSPPROG ---
Hospitalist Progress Note Assessment/Plan: Hospitalist night float note Culture rectally by RN reporting that patient with a tachycardia and shortness of breath to the 160s. Telemetry of been placed in arrive to bedside to find patient in SVT, and symptomatic. Patient admitted for COPD exacerbation with chronic oxygen dependence Vagal maneuvers were attempted and patient did have some slowing heart rate showing sinus tachycardia/arrhythmia. Patient's baseline heart rate has been 90s to low 1 100s overnight. Patient's heart rate again increased to 160s with symptoms. 5 mg of metoprolol were given the with intermittent improvement in heart rate. Patient continued to feel unwell but denied any chest pain. Patient be transferred to PCU with her heart rate in the 100s-110s. Echocardiogram completed yesterday results are still pending. 500 cc bolus IV fluids been ordered. Check troponin and TSH. 32 minutes critical care time from 0650 to 722. 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
[2018-11-16] MEDS: predniSONE 20 MG TAB PO SCH (08:41)
[2018-11-16] MEDS: ENOXAPARIN 40 MG/0.4 ML SYR SC SCH (08:41)
[2018-11-16] MEDS: SENNOSIDES/DOCUSATE SODIUM TAB PO SCH ×2 (08:41→20:38)
[2018-11-16] MEDS: POLYETHYLENE GLYCOL 3350 17 GM PKT PO SCH (08:41)
--- NOTE | 2018-11-16 09:36 | ECHO ---
[email or web address] [address] [address] Main: [phone] Echocardiography Examination Transthoracic Name: STEVO THOMSON MR#: [id number] Study Date: 11/15/2018 Study Time: 03:38 PM Date of : 1935 Age: 83 year(s) Height: 157.5 cm (62 in.) Weight: 45.36 kg (100 lb.) BSA: 1.42 m2 Gender: Female Examination: Echo Contrast: Image Quality: Adequate Rhythm: Heart Rate: BP: 128 mmHg/86 mmHg Indication: tachycardia, hx emphysema Procedure Staff Referring Physician: Yard Hostler: [facility] Reading Physician: Jayy Calvillo MD Requesting Provider: Ordering Physician: Kelsey Rangel Indication: tachycardia, hx emphysema Measurements Chambers AV/MV Label Value Normal Value Label Value Normal Value LVOTd 1.7 cm (1.8cm - 2cm) AV PGmax 4 mmHg LVDd, 2D 3.1 cm (3.9cm - 5.3cm) AV PGmean 3 mmHg LVDs, 2D 2.2 cm (2.1cm - 4cm) AV Vmax 1 m/s IVSd, 2D 0.9 cm (0.6cm - 1.1cm) ARIS (VTI) 1.5 cm2 LVPWd, 2D 1 cm MV E Vmax 0.5 m/s LVEF, 2D 58 % (54% - 74%) MV A Vmax 0.7 m/s LVOT PGmean 1 mmHg MV E/A 0.71 LVOT Vmean 0.45 m/s MV E/E' lateral 5.1 RVDd, 2D 2 cm (1.9cm - 3.8cm) MV E/E' septal 5.7 (0.45 - 1.25) LADs, 2D 3 cm (2.7cm - 3.8cm) MV DT 222 ms Additional Vessels MV E' septal 0.09 m/s Label Value Normal Value MV PHT 0.07 s AoRoot, 2D 2.8 cm (1.4cm - 2.6cm) MVA PHT 3.4 cm2 IVC 1.9 cm (1.2cm - 2.3cm) MV E' lateral 0.1 m/s MV E/E' mean 5.26 MV PHT 65 ms MV E' mean 0.1 m/s TV/PV Label Value Normal Value Patient: STEVO THOMSON Study Date: 11/15/2018 Page 1 of 3 03:38 PM RA Pressure 10 mmHg RVSP 77 mmHg TR Pmax 67 mmHg TR Vmax 4.1 m/s PV PGmax 3 mmHg PV Vmax, Caliper 0.81 m/s (0.6m/s - 0.9m/s) Conclusions (1) Left ventricular systolic ejection fraction was normal (55-60%) - no LVH (2) Mild RV dilation with grossly normal function (3) Normal atrial dimensions (4) Mild to mod MR with mild MAC (5) Trileaflet aortic valve with sclerosis, but no stenosis or insufficiency (6) Mod to severe TR - RVSP was estimated to be 77 mm Hg (7) Grossly normal pulmonic valve (8) Aorta with normal dimensions Findings Apical imaging off axis, patient very thin and unable to lay fully on left side. Left Ventricle: Left ventricle is normal in size. Normal global systolic left ventricular function. The ejection fraction, measured by 2D, is 58 %. EF range is estimated at 55 % - 60 %. Left ventricle wall thickness is normal. There are no regional wall motion abnormalities. Cannot determine LAP and Diastolic Dysfunction Grade. Right Ventricle: Mildly dilated right ventricle. Right ventricular systolic function is normal. Left Atrium: The left atrium is normal in size. Right Atrium: The right atrium is normal in size. Mitral Valve: Mild to moderate eccentric mitral regurgitation. Mitral valve appears structurally normal. No mitral valve stenosis. There is mild mitral calcification. Aortic Valve: Aortic leaflets are structurally normal. No significant aortic valve regurgitation. There is no aortic stenosis. There is aortic sclerosis present. Tricuspid Valve: Tricuspid valve leaflets are structurally normal. Moderate to severe tricuspid regurgitation. No tricuspid valve stenosis. Right Ventricular systolic pressure is measured at 77 mmHg. Pulmonary artery pressure severely increased. Pulmonic Valve: Pulmonic leaflets are structurally normal. Trivial pulmonic valve regurgitation is present. Aorta: The aortic root size in 2D measures 2.8 cm. Aorta Measurements AoRoot, 2D is 2.8 cm. IVC: The inferior vena cava is normal in size. Pericardium: No pericardial effusion. Exam Details Procedure Ordered: Echo Patient: STEVO THOMSON Study Date: 11/15/2018 Page 2 of 3 03:38 PM Procedure Status: Routine study Image Quality: Adequate Facility Location: Cardiac Echo 1 (No Signature Object) Patient: STEVO THOMSON Study Date: 11/15/2018 Page 3 of 3 03:38 PM [id number]
--- NOTE | 2018-11-16 09:52 | CPEKG ---
Test Reason : OPEN Blood Pressure : / mmHG Vent. Rate : 108 BPM Atrial Rate : 144 BPM P-R Int : 131 ms QRS Dur : 069 ms QT Int : 310 ms P-R-T Axes : 076 087 041 degrees QTc Int : 416 ms Sinus tachycardia with frequent PACs Left atrial enlargement Anteroseptal infarct, age indeterminate Confirmed by Shane Young ([id number]) on 11/16/2018 9:51:53 AM Referred By: Alanis Perez Confirmed By:Shane Young
[2018-11-16] MEDS: FLUCONAZOLE 150 MG TAB PO SCH (10:10)
[2018-11-16] MEDS: MULTIVITAMINS 1 EACH TAB PO SCH ×2 (10:10→20:38)
[2018-11-16] MEDS: TRIAMTERENE/HCTZ 37.5/25 1 EACH TAB PO SCH (10:10)
--- NOTE | 2018-11-16 12:50 | HOSPPROG ---
Hospitalist Progress Note Assessment/Plan: 83 yo F with PMH of COPD, chronic nocturnal hypoxia as well as thyroid cancer presenting with sob and acute on chronic hypoxic respiratory failure. # acute on chronic hypoxic respiratory failure -uses O2 only at night -now on 2 liters #aflutter w Rapid rate, episode of SVT -improved w Metoprolol -ordered diltiazem, she slowed down and then became tachycardic again -spoke w cards; they will see her # copd exacerbation/emphysema -prednisone, scheduled duoneb -Levaquin -recommendation on dc is to add Spiriva to her regimen or Anoro #pulmonary htn -from COPD # pulmonary nodules -followed by Dr Geiger -concern for enlarging rounded mass # thyroid cancer -s/p radiation, surgery -speech to see for swallow concerns #thrush -Diflucan (is on Nystatin, but the Diflucan works better) # HTN -on triamterene/hctz at home # HLD - statin #plan: start diltiazem gtt, appreciate cardiology seeing Mandi.Reviewed w her echo report. Subjective: Mandi feels better now, during the night couldn't catch her breath but was tachycardic. Objective: Vital Signs Temp Pulse Resp BP Pulse Ox 36.6 C 161 H 28 H 113/66 90 L 11/16/18 10:48 11/16/18 12:35 11/16/18 12:35 11/16/18 12:35 11/16/18 12:35 Laboratory Results 11/13/18 04:36 11/13/18 04:34 11/15/18 11/16/18 11/17/18 05:59 05:59 05:59 Output Total 300 Balance -300 - Physical Exam Constitutional: chronically ill appearing Eyes: PERRL Ears, Nose, Mouth, Throat: hearing normal Cardiovascular: regular rate and rhythym, irregularly irregular, tachycardia Respiratory: reduced air movement (can hear a few more breath sounds today, very diminished at the bases), other (increase wob w any activity, uses her abdominal muscles) Skin: warm Musculoskeletal: generalized weakness Neurologic: AAOx3 Psychiatric: interacting appropriately ICD10 Worksheet Patient Problems: Problems Problem Status Onset Chronic obstructive pulmonary disease with acute exacerbation Acute COPD (chronic obstructive pulmonary disease) Acute HTN (hypertension) Acute 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
[2018-11-16] MEDS ORDERED: DILTIAZEM HCL/D5W 125 ML IV SCH (14:00)
--- NOTE | 2018-11-16 14:03 | PDINTPN ---
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 Very slow improvement, but not back to baseline. Likely due to a viral respiratory tract infection, although respiratory panel negative. FEV1 is significantly lower than it was in August 2017. I think most of this is acute and explains her current symptoms. I think this likely to improved, albeit slowly. Pulmonary hypertension: Severe. Likely due to COPD. I doubt that there is a significant acute component given the normal appearance of the RV, although it is possible the pressures will be somewhat lower once her exacerbation has resolved. SVT: Resolved with metoprolol. Has not returned. Plan: Continue steroids, Levaquin, and bronchodilators. Given the markedly reduced FEV1, I think that explains her symptoms and I would not proceed with repeat CT angiogram. Maintain oxygen saturations at least 90% at all times due to pulmonary hypertension. Will change albuterol nebs to Xopenex due to SVT Will aim for discharge 1-2 days if she is overall feeling the same or improved. 11/16/18 14:07 Subjective: Had marked increase in dyspnea overnight, improved with rate control for SVT today. She is back to where she felt yesterday. Scant sputum. Objective: Vital Signs Temp Pulse Resp BP Pulse Ox 36.6 C 123 H 28 H 113/66 90 L 11/16/18 10:48 11/16/18 12:53 11/16/18 12:35 11/16/18 12:53 11/16/18 12:35 Laboratory Results 11/13/18 04:36 11/13/18 04:34 11/15/18 11/16/18 11/17/18 05:59 05:59 05:59 Output Total 300 Balance -300 Bedside Nabeel: FEV1 0.44 L (28% predicted) Echocardiogram: LVEF 55-60%. Normal appearance of RV. 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
--- NOTE | 2018-11-16 14:55 | ASMTCMCOM ---
CM Note CM Note Notes: 11/16/2018 Case Management Note Reviewed chart. PT has cleared for home. There were no identified outpatient needs from JOB COMPOSITOR. No other case management d/c needs identified. Case Management d/c poc: home with follow up as directed. Case Management to follow. Date Signed: 11/16/2018 02:55 PM Electronically Signed By:Inocencia Yarbrough RN
--- NOTE | 2018-11-16 17:20 | CPEKG ---
Test Reason : OPEN Blood Pressure : / mmHG Vent. Rate : 149 BPM Atrial Rate : 152 BPM P-R Int : 083 ms QRS Dur : 090 ms QT Int : 338 ms P-R-T Axes : -75 091 085 degrees QTc Int : 532 ms Atrial fibrillation with rapid V-rate Ventricular premature complex Confirmed by Shane Young ([id number]) on 11/16/2018 5:20:06 PM Referred By: Alanis Perez Confirmed By:Shane Young
[2018-11-16] MEDS: IPRATROPIUM BROMIDE 0.5 MG/2.5 ML DEYVIAL IH SCH ×2 (17:29→21:44)
[2018-11-16] MEDS: LEVALBUTEROL 0.63 MG/3 ML DEYVIAL IH SCH ×2 (17:30→21:44)
[2018-11-16] MEDS: ROSUVASTATIN CALCIUM 10 MG TAB PO SCH (18:03)
[2018-11-16] MEDS: CALCIUM CARB W/VIT D 500 MG TAB PO SCH (18:03)
[2018-11-16] MEDS: CHOLECALCIFEROL VIT D3 2,000 UNITS TAB/CAP PO SCH (18:04)
--- NOTE | 2018-11-16 19:15 | GCON ---
[f rep st] CONSULTATION DATE OF CONSULTATION: 11/16/2018 We were asked by the hospitalist team to evaluate Mandi for a rapid cardiac rhythm. Tiffanie was admitted to the hospital on November 12, 2018. She is an 83-year-old female with a history o f COPD. Additionally, she has a history of thyroid cancer with hypoxemia. She has been followed by the hospitalists and went into a rapid cardiac rhythm. EKG showing atrial tachycardia with rates up to 150 to 160. Metoprolol was given with a decrease in her heart rate for a short period of time. I t then reverted back to a rapid atrial tachycardia with a rate of 150 to 160. There was concern that she may have atrial fibrillation or flutter. This was reviewed with Dr. Jayy Calvillo and confirmed i t was in fact atrial tachycardia. She was started on a diltiazem drip upon arrival to the PCU unit. Her heart rates did respond well with rates in the 120s. At the time of my visit she is resting com fortably. She is aware of her rapid heart rate. There was discussion of whether she was in atrial f lutter versus a rapid tachycardic rate. Her EKG appears to be a sinus tachycardia. She does have a history of COPD with emphysema and has been followed by Pulmonary as well. She has a history of hype rtension and is on triamterene and hydrochlorothiazide. MEDICATIONS: As listed in her chart. ALLERGIES: She has no known allergies. PAST MEDICAL HISTORY: Cancer, COPD, and pneumonia. SURGICAL HISTORY: Thyroid surgery. FAMILY HISTORY: None pertinent. SOCIAL HISTORY: She is a former smoker. She uses alcohol occasionally. Lives independently. REVIEW OF SYSTEMS: 10-point review of system was reviewed and negative except that noted in the HPI. PHYSICAL EXAMINATION: CONSTITUTIONAL: She is in no pain. EARS, NOSE, MOUTH AND THROAT: Hearing nor mal. Ears appear normal. No oral thrush noted. CARDIOVASCULAR: Heart rate is rapid. No murmurs, rubs, or gallops. No edema noted. Peripheral pulses, 2+ radial and dorsal pedis, both right and lef t. RESPIRATORY: Lung sounds are reduced. No wheezes, rales, or rhonchi. GASTROINTESTINAL: Abdomen is nontender. No masses noted. GENITOURINARY: No bladder tenderness. SKIN: Warm and dry with no rashes. MUSCULOSKELETAL: Full muscle strength. No muscle tenderness. NEUROLOGIC: Alert and orie nted x3. PSYCHIATRIC: She is not anxious. Her thought processes are normal. RECOMMENDATIONS AND PLAN: Review of the EKG done at 12:39, November 16, 2018, shows an atrial tachycardi a. This was reviewed with Dr. Jayy Calvillo. There was suggestion that this may be atrial fibrillatio n. However, this is a rapid regular heart rate. The diltiazem drip has helped manage and decrease h er rapid rate. She has had occasional bursts of supraventricular tachycardia that go into the 120s a nd will settle down into the 80s to 90s. There is no indication for anticoagulant therapy other than the Lovenox that she is on. Recommendation: Continue on the diltiazem drip with recommendation to transfer to oral diltiazem when the drip is completed. She will continue all her other medications. At this time she is resting comfortably. We will continue to follow along. /[id number]
[2018-11-16] MEDS: ASPIRIN 81 MG CHEWABLE TAB PO SCH (20:38)
[2018-11-17] MEDS: LEVALBUTEROL 0.63 MG/3 ML DEYVIAL IH SCH ×4 (04:38→20:06)
[2018-11-17] MEDS: IPRATROPIUM BROMIDE 0.5 MG/2.5 ML DEYVIAL IH SCH ×4 (04:38→20:05)
[2018-11-17] MEDS: LEVOTHYROXINE 112 MCG TAB PO SCH (06:09)
[2018-11-17 08:29] LABS: PLATELET COUNT 171 10^3/uL (150-400)
--- NOTE | 2018-11-17 08:55 | HOSPPROG ---
Hospitalist Progress Note Assessment/Plan: 83 yo F with PMH of COPD, chronic nocturnal hypoxia as well as thyroid cancer presenting with sob and acute on chronic hypoxic respiratory failure. # acute on chronic hypoxic respiratory failure -uses O2 only at night -now on 2 liters #aflutter w Rapid rate, episode of SVT -improved w Metoprolol -back in aflutter this morning with rates in the 140's, diltiazem gtt resumed -reviewed her care w Dr Muhammad, appreciate his involvement -[id number] Score 4- to start Eliquis -oral diltiazem will be ordered # copd exacerbation/emphysema -prednisone, scheduled duoneb -Levaquin -recommendation on dc is to add Spiriva to her regimen or Anoro #pulmonary htn -from COPD # pulmonary nodules -followed by Dr Geiger -concern for enlarging rounded mass # thyroid cancer -s/p radiation, surgery -speech to see for swallow concerns #thrush -Diflucan (is on Nystatin, but the Diflucan works better) # HTN -on triamterene/hctz at home # HLD - statin #plan: Reviewed her care w Dr Cueto and Dr Muhammad, will dc Diflucan and Levaquin. Has received full treatment. Resumed diltiazem gtt this morning. Subjective: Mandi is feeling terrible this morning, can't catch her breath. Objective: Vital Signs Temp Pulse Resp BP Pulse Ox 36.4 C 168 H 18 116/82 H 93 11/17/18 07:38 11/17/18 08:00 11/17/18 07:38 11/17/18 08:00 11/17/18 07:38 Laboratory Results 11/17/18 08:20 11/16/18 11/17/18 11/18/18 05:59 05:59 05:59 Intake Total 1425 Output Total 1250 Balance 175 - Physical Exam Constitutional: chronically ill appearing, uncomfortable Eyes: PERRL Ears, Nose, Mouth, Throat: hearing normal Cardiovascular: irregularly irregular, tachycardia Respiratory: reduced air movement, other (increase respiratory rate, pursed lip breathing, poor expiratory phase, and can't take a deep breath) Skin: warm Musculoskeletal: generalized weakness Neurologic: AAOx3 Psychiatric: anxious ICD10 Worksheet Patient Problems: Problems Problem Status Onset Chronic obstructive pulmonary disease with acute exacerbation Acute COPD (chronic obstructive pulmonary disease) Acute HTN (hypertension) Acute 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
--- NOTE | 2018-11-17 08:57 | PDCARPN ---
Cardiology Progress Note Chief Complaint: Atrial flutter with rapid ventricular response Assessment/Plan: Assessment: 1. COPD exacerbation 2. History of thyroid cancer, currently on thyroid supplementation post surgery 3. Dysphagia 4. Hypertension Plan: 1. [id number] Score 4. Needs long-term anticoagulation. Age more than 80, weight less than 60 kilos, will start Eliquis 2.5 mg twice daily. DC Lovenox. DC aspirin. 2. Will need long-term rate control because of paroxysmal nature of her atrial arrhythmias. Will start diltiazem CD 180 mg daily this morning. Continue diltiazem drip for 2 hr and then discontinue. Will keep on bedrest for the next 24 hr because with minimal activity her heart rates increased when she is in atrial flutter. Bathroom privileges okay. 3. Will discontinue triamterene HCTZ since we are starting diltiazem long-term to avoid hypotension. 11/17/18 08:55 Reviewed/Discussed With: multidisciplinary team Time Spent with Patient: greater than 25 minutes Time Spent with Patient: Greater than 25 minutes spent on this patients care, greater than 50% of time spent counseling, educating, and coordinating care regarding the above mentioned plan. Objective: Vital Signs (8 Hrs) Temp Pulse Resp BP Pulse Ox 11/17/18 08:00 168 H 116/82 H 11/17/18 07:38 36.4 C 111 H 18 143/68 H 93 11/17/18 04:00 36.4 C 74 18 122/51 H 100 Intake/Output (24 Hrs) 11/15/18 11/16/18 11/17/18 11:59 11:59 11:59 Intake Total 1425 Output Total 300 950 Balance -300 475 Intake: Oral (ml) 925 IV Infused (ml) 500 Ns 500 ml @ Wide Open IV 500 ONCE ONE Rx#:[id number] Output: Urine (ml) 300 950 Toilet 300 950 Other: Intake Quantity Yes Yes Sufficient Number of Voids Toilet 2 1 2 Number of Stools Toilet 1 1 Result Diagrams: 11/17/18 08:20 11/13/18 04:34 Cardiac Labs: Cardiac Lab Results (72 Hrs) 11/16/18 09:44 Troponin I 0.027 Telemetry: Atrial flutter with rapid ventricular response While I was in the room, she converted to normal sinus rhythm spontaneously - Physical Exam Constitutional: apparent distress, cachectic Eyes: PERRL, EOMI Ears, Nose, Mouth, Throat: moist mucous membranes Cardiovascular: irregularly irregular Respiratory: reduced air movement ICD10 Worksheet Patient Problems: Problems Problem Status Onset 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
[2018-11-17] MEDS ORDERED: DILTIAZEM CD 180 MG CAP PO SCH (09:00)
[2018-11-17] MEDS: DILTIAZEM 60 MG TAB PO SCH ×3 (09:45→20:23)
[2018-11-17] MEDS: APIXABAN 2.5 MG TAB PO SCH ×2 (09:47→20:23)
[2018-11-17] MEDS: MULTIVITAMINS 1 EACH TAB PO SCH ×2 (09:48→20:22)
[2018-11-17] MEDS: SENNOSIDES/DOCUSATE SODIUM TAB PO SCH ×2 (09:49→20:25)
[2018-11-17] MEDS: POLYETHYLENE GLYCOL 3350 17 GM PKT PO SCH (09:49)
[2018-11-17] MEDS: predniSONE 20 MG TAB PO SCH (09:49)
[2018-11-17] MEDS: FLUCONAZOLE 150 MG TAB PO SCH (11:21)
--- NOTE | 2018-11-17 13:48 | PDINTPN ---
School Age Program Teacher Progress Note Assessment/Plan: Assessment: Severe emphysema: Seen on CT scan Acute COPD exacerbation: Initially had productive cough, now her main symptom is dyspnea with associated hypoxemia. Very slow improvement, but not back to baseline. Likely due to a viral respiratory tract infection, although respiratory panel negative. FEV1 is significantly lower than it was in August 2017. I think most of this is acute and explains her current symptoms. I think this likely to improved, albeit slowly. Pulmonary hypertension: Severe. Likely due to COPD. I doubt that there is a significant acute component given the normal appearance of the RV, although it is possible the pressures will be somewhat lower once her exacerbation has resolved. SVT: AF with RVR. Resolved with metoprolol initially, then returned. No on Cardizem. Plan: Continue steroids, Levaquin, and bronchodilators. Given the markedly reduced FEV1, I think that explains her symptoms and I would not proceed with repeat CT angiogram. Maintain oxygen saturations at least 90% at all times due to pulmonary hypertension. Will change albuterol nebs to Xopenex due to SVT Will aim for discharge 1-2 days if she is overall feeling the same or improved. 11/17/18 13:46 Subjective: Feels worse today after having episode of AFlutter with RVR. Minimal cough with scant sputum. Dyspnea worse than yesterday. Objective: Vital Signs Temp Pulse Resp BP Pulse Ox 36.4 C 96 20 134/68 H 95 11/17/18 07:38 11/17/18 11:00 11/17/18 11:00 11/17/18 11:00 11/17/18 11:00 Laboratory Results 11/17/18 08:20 11/17/18 08:20 11/16/18 11/17/18 11/18/18 05:59 05:59 05:59 Intake Total 1425 Output Total 1250 350 Balance 175 -350 Physical Exam - Physical Exam General Appearance: alert, no apparent distress EENT: normal ENT inspection Neck: normal inspection Respiratory: wheezing Cardiac/Chest: regular rate, rhythm, No edema Abdomen: normal bowel sounds, non-tender Skin: normal color, warm/dry Extremities: normal inspection Neuro/Psych: alert, normal mood/affect, oriented x 3 ICD10 Worksheet Patient Problems: Problems Problem Status Onset Chronic obstructive pulmonary disease with acute exacerbation Acute COPD (chronic obstructive pulmonary disease) Acute HTN (hypertension) Acute 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
[2018-11-17] MEDS ORDERED: LORazepam 0.5 MG TAB PO PRN (15:53)
[2018-11-17] MEDS: CHOLECALCIFEROL VIT D3 2,000 UNITS TAB/CAP PO SCH (18:14)
[2018-11-17] MEDS: CALCIUM CARB W/VIT D 500 MG TAB PO SCH (18:14)
[2018-11-17] MEDS: ROSUVASTATIN CALCIUM 10 MG TAB PO SCH (18:14)
[2018-11-18] MEDS: LEVOTHYROXINE 112 MCG TAB PO SCH (04:17)
[2018-11-18] MEDS: LEVALBUTEROL 0.63 MG/3 ML DEYVIAL IH SCH (04:54)
[2018-11-18] MEDS: IPRATROPIUM BROMIDE 0.5 MG/2.5 ML DEYVIAL IH SCH (04:54)
--- NOTE | 2018-11-18 08:30 | PDCARPN ---
Cardiology Progress Note Assessment/Plan: Assessment: 1. COPD exacerbation 2. History of thyroid cancer, currently on thyroid supplementation post surgery 3. Dysphagia 4. Hypertension Plan: 1. Continue Eliquis 2.5 mg BID 2. Use immediate release dilitazem since it can be crushed with apple sauce, patient cannot swallow diltiazem CD capsule 3. She will follow up with me as outpatient 11/18/18 08:29 Subjective: feeling better today, continues with short episodes of AFL rates in 160s Reviewed/Discussed With: hospitalist Time Spent with Patient: greater than 25 minutes Time Spent with Patient: Greater than 25 minutes spent on this patients care, greater than 50% of time spent counseling, educating, and coordinating care regarding the above mentioned plan. Objective: Vital Signs (8 Hrs) Temp Pulse Resp BP Pulse Ox 11/18/18 07:50 36.8 C 102 H 18 129/63 H 92 11/18/18 04:00 36.6 C 75 20 111/61 99 Intake/Output (24 Hrs) 11/16/18 11/17/18 11/18/18 11:59 11:59 11:59 Intake Total 1425 780 Output Total 300 1300 1250 Balance -300 125 -470 Intake: Oral (ml) 925 780 IV Infused (ml) 500 Ns 500 ml @ Wide Open IV 500 ONCE ONE Rx#:[id number] Output: Urine (ml) 300 1300 1250 Bedside Commode 350 1250 Toilet 300 950 Other: Intake Quantity Yes Sufficient Number of Voids Bedside Commode 3 3 Toilet 1 2 Number of Stools Bedside Commode 1 Toilet 1 1 Result Diagrams: 11/17/18 08:20 11/17/18 08:20 Cardiac Labs: Cardiac Lab Results (72 Hrs) 11/16/18 09:44 Troponin I 0.027 Telemetry: NSR, intermittent RADAH with V rates in 160s (upto 2 min) ICD10 Worksheet Patient Problems: Problems Problem Status Onset 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
[2018-11-18] MEDS: APIXABAN 2.5 MG TAB PO SCH ×2 (08:34→21:05)
[2018-11-18] MEDS: DILTIAZEM 60 MG TAB PO SCH ×3 (08:35→21:06)
[2018-11-18] MEDS: predniSONE 20 MG TAB PO SCH (08:35)
[2018-11-18] MEDS: MULTIVITAMINS 1 EACH TAB PO SCH ×2 (08:35→21:05)
[2018-11-18] MEDS: POLYETHYLENE GLYCOL 3350 17 GM PKT PO SCH (08:36)
[2018-11-18] MEDS: SENNOSIDES/DOCUSATE SODIUM TAB PO SCH ×2 (08:36→21:12)
[2018-11-18] MEDS ORDERED: IPRATROPIUM BROMIDE 0.5 MG/2.5 ML DEYVIAL IH PRN (09:00)
[2018-11-18] MEDS ORDERED: LEVALBUTEROL 0.63 MG/3 ML DEYVIAL IH PRN (09:00)
--- NOTE | 2018-11-18 14:26 | HOSPPROG ---
Hospitalist Progress Note Assessment/Plan: 83 yo F with PMH of COPD, chronic nocturnal hypoxia as well as thyroid cancer presenting with sob and acute on chronic hypoxic respiratory failure. # acute on chronic hypoxic respiratory failure -uses O2 only at night -now on 2 liters #aflutter w Rapid rate, episode of SVT -was treated w diltiazem gtt and iv Lopressor -[id number] Score 4- Eliquis -oral diltiazem # copd exacerbation/emphysema -prednisone, scheduled duoneb -finished treatment w Levaquin -recommendation on dc is to add Spiriva to her regimen or Anoro #pulmonary htn -from COPD # pulmonary nodules -followed by Dr Geiger -concern for enlarging rounded mass # thyroid cancer -s/p radiation, surgery -speech to see for swallow concerns #thrush -Diflucan (is on Nystatin, but the Diflucan works better) # HTN -triamterene/hctz dc -now on Diltiazem # HLD - statin #plan: dc likely on Monday, needs to ambulate and see how she does. Her daughter is flying in on Monday and will be staying w her mom. On dc, she will needs scripts for Diltiazem, Eliquis, Spiriva, and Prednisone. Do not resumed triamterene/hctz. F/u w Dr Muhammad in 2 weeks. Subjective: Mandi is starting to feel better today. Less short of breath. Objective: Vital Signs Temp Pulse Resp BP Pulse Ox 36.3 C 99 20 117/52 L 94 11/18/18 12:32 11/18/18 12:32 11/18/18 12:32 11/18/18 12:32 11/18/18 12:32 Laboratory Results 11/17/18 08:20 11/17/18 08:20 11/17/18 11/18/18 11/19/18 05:59 05:59 05:59 Intake Total 1425 780 Output Total 1250 1600 Balance 175 -820 - Physical Exam Constitutional: other (slender) Eyes: PERRL Ears, Nose, Mouth, Throat: hearing normal Cardiovascular: irregularly irregular, tachycardia Respiratory: reduced air movement (bases), other (poor expiratory phase) Skin: warm Musculoskeletal: generalized weakness Neurologic: AAOx3 Psychiatric: interacting appropriately ICD10 Worksheet Patient Problems: Problems Problem Status Onset Chronic obstructive pulmonary disease with acute exacerbation Acute COPD (chronic obstructive pulmonary disease) Acute HTN (hypertension) Acute 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
--- NOTE | 2018-11-18 15:29 | PDINTPN ---
Project Management Consultant Progress Note Assessment/Plan: Assessment: Severe emphysema: Seen on CT scan Acute COPD exacerbation: Initially had productive cough, now her main symptom is dyspnea with associated hypoxemia. Very slow improvement, but not back to baseline. Likely due to a viral respiratory tract infection, although respiratory panel negative. FEV1 is significantly lower than it was in August 2017. I think most of this is acute and explains her current symptoms. I think this likely to improved, albeit slowly. Pulmonary hypertension: Severe. Likely due to COPD. I doubt that there is a significant acute component given the normal appearance of the RV, although it is possible the pressures will be somewhat lower once her exacerbation has resolved. SVT: AF with RVR. Resolved with metoprolol initially, then returned. Now on Cardizem, no further events last 24 hours. Plan: Continue steroids, and bronchodilators. Given the markedly reduced FEV1 , I think that explains her symptoms and I would not proceed with repeat CT angiogram. Maintain oxygen saturations at least 90% at all times due to pulmonary hypertension. Will change albuterol nebs to Xopenex due to SVT Completed 6 days of Levaquin yesterday Will aim for discharge tomorrow on oxygen and about 4 more days of prednisone 20 mg/day if she is overall feeling the same or improved. Follow-up with Dr. Geiger in 10 days. 11/18/18 15:29 Subjective: Feels better, didn't have any AFlutter and feels she can breath better even when not having tachycardia. Activity has been restricted, so hasn't been doing any activity outside her room. Objective: Vital Signs Temp Pulse Resp BP Pulse Ox 36.3 C 99 20 117/52 L 94 11/18/18 12:32 11/18/18 12:32 11/18/18 12:32 11/18/18 12:32 11/18/18 12:32 Laboratory Results 11/17/18 08:20 11/17/18 08:20 11/17/18 11/18/18 11/19/18 05:59 05:59 05:59 Intake Total 1425 780 Output Total 1250 1600 350 Balance 175 -820 -350 Physical Exam - Physical Exam General Appearance: alert, no apparent distress EENT: normal ENT inspection Neck: normal inspection Respiratory: lungs clear, normal breath sounds Cardiac/Chest: regular rate, rhythm, No edema Abdomen: normal bowel sounds, non-tender, soft Skin: normal color, warm/dry Extremities: normal inspection Neuro/Psych: alert, normal mood/affect, oriented x 3 ICD10 Worksheet Patient Problems: Problems Problem Status Onset Chronic obstructive pulmonary disease with acute exacerbation Acute COPD (chronic obstructive pulmonary disease) Acute HTN (hypertension) Acute 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
[2018-11-18] MEDS: CALCIUM CARB W/VIT D 500 MG TAB PO SCH (17:38)
[2018-11-18] MEDS: ROSUVASTATIN CALCIUM 10 MG TAB PO SCH (17:53)
[2018-11-18] MEDS: CHOLECALCIFEROL VIT D3 2,000 UNITS TAB/CAP PO SCH (17:54)
[2018-11-19] MEDS: LEVOTHYROXINE 112 MCG TAB PO SCH (05:11)
[2018-11-19] MEDS: DILTIAZEM 60 MG TAB PO SCH (08:22)
[2018-11-19] MEDS: predniSONE 20 MG TAB PO SCH (08:23)
[2018-11-19] MEDS: MULTIVITAMINS 1 EACH TAB PO SCH ×2 (08:23→22:12)
[2018-11-19] MEDS: APIXABAN 2.5 MG TAB PO SCH ×2 (08:23→22:05)
--- NOTE | 2018-11-19 08:24 | CPEKG ---
Test Reason : OPEN Blood Pressure : / mmHG Vent. Rate : 087 BPM Atrial Rate : 144 BPM P-R Int : 115 ms QRS Dur : 071 ms QT Int : 371 ms P-R-T Axes : 080 085 064 degrees QTc Int : 447 ms Sinus arrhythmia Probable left atrial enlargement Anteroseptal infarct, age indeterminate Confirmed by Brittani Swan ([id number]) on 11/19/2018 8:23:50 AM Referred By: BRITTANI SWAN Confirmed By:Brittani Swan
[2018-11-19] MEDS: POLYETHYLENE GLYCOL 3350 17 GM PKT PO SCH (08:28)
[2018-11-19] MEDS: SENNOSIDES/DOCUSATE SODIUM TAB PO SCH ×2 (10:36→22:13)
--- NOTE | 2018-11-19 10:41 | HOSPPROG ---
Hospitalist Progress Note Assessment/Plan: 83 yo F with PMH of COPD, chronic nocturnal hypoxia as well as thyroid cancer presenting with sob and acute on chronic hypoxic respiratory failure. # acute on chronic hypoxic respiratory failure - baseline is 2 LPM nocturnal O2 , requiring 2 LPM continuously here, quite SOB this am #aflutter w Rapid rate, episode of SVT - likely hastened by lung dz. Rate better controlled on po dilt cd, but still has occasional episodes of rapid flutter, which is quite symptomatic -cont eliquis for chasds-vasc 4 -cont oral diltiazem # copd exacerbation/emphysema -cont prednisone with plan for 3-4 more days at discharge -cont scheduled duoneb -finished treatment w Levaquin -will add Spiriva at dc to her regimen #pulmonary htn -from COPD # pulmonary nodules - concern for enlarging round mass -outpt f/u with Dr. Geiger # thyroid cancer -s/p radiation, surgery -speech evaluated, no concerns #thrush -Diflucan (is on Nystatin, but the Diflucan works better) # HTN -triamterene/hctz dc -now on Diltiazem # HLD - statin #plan: dc likely tomorrow. Her daughter is flying in today and will be staying w her mom. On dc, she will needs scripts for Diltiazem, Eliquis, Spiriva, and Prednisone. Do not resume triamterene/hctz. F/u w Dr Muhammad in 2 weeks. Subjective: Pt quite SOB this am, purse lipped breathing. Coughing a little. No CP. No fevers. Says her intermittent episodes of rapid flutter are very symptomatic, had another one this am, fears these episodes at home. She doesn' t feel ready for discharge. Objective: Vital Signs Temp Pulse Resp BP Pulse Ox 36.4 C 164 H 20 125/68 H 98 11/19/18 08:00 11/19/18 08:22 11/19/18 08:00 11/19/18 08:00 11/19/18 10:36 Laboratory Results 11/17/18 08:20 11/17/18 08:20 11/18/18 11/19/18 11/20/18 05:59 05:59 05:59 Intake Total 780 390 Output Total 1600 1150 150 Balance -820 -760 -150 - Physical Exam Constitutional: no apparent distress Eyes: PERRL Ears, Nose, Mouth, Throat: moist mucous membranes Cardiovascular: irregularly irregular Respiratory: no respiratory distress, reduced air movement, expiratory wheeze Gastrointestinal: normoactive bowel sounds, soft, non-tender abdomen Skin: warm Musculoskeletal: full muscle strength Neurologic: AAOx3 Psychiatric: interacting appropriately ICD10 Worksheet Patient Problems: Problems Problem Status Onset Chronic obstructive pulmonary disease with acute exacerbation Acute COPD (chronic obstructive pulmonary disease) Acute HTN (hypertension) Acute 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
--- NOTE | 2018-11-19 13:26 | ASMTCMCOM ---
CM Note CM Note Notes: Pts case discussed in tx rounds. Pt is not medically stable to d/c at this time. Pt is still short of breath. When pt is medically stable to d/c, pt does not have any needs. CM available for changes. Plan: Independent Date Signed: 11/19/2018 11:47 AM Electronically Signed By:BOUCHRA Bianchi
[2018-11-19] MEDS: DILTIAZEM CD 120 MG CAP PO SCH ×2 (16:48→22:05)
[2018-11-19] MEDS: ROSUVASTATIN CALCIUM 10 MG TAB PO SCH (18:01)
[2018-11-19] MEDS: CHOLECALCIFEROL VIT D3 2,000 UNITS TAB/CAP PO SCH (18:03)
[2018-11-19] MEDS: CALCIUM CARB W/VIT D 500 MG TAB PO SCH (18:04)
[2018-11-20] MEDS: LEVOTHYROXINE 112 MCG TAB PO SCH (05:55)
[2018-11-20 07:18] VITALS: BP 141/95
[2018-11-20] MEDS: DILTIAZEM CD 120 MG CAP PO SCH (09:47)
[2018-11-20] MEDS: APIXABAN 2.5 MG TAB PO SCH (09:47)
[2018-11-20] MEDS: MULTIVITAMINS 1 EACH TAB PO SCH (09:47)
[2018-11-20] MEDS: predniSONE 20 MG TAB PO SCH (09:48)
[2018-11-20] MEDS: POLYETHYLENE GLYCOL 3350 17 GM PKT PO SCH (09:48)
--- NOTE | 2018-11-20 10:01 | PDIAF ---
- Diagnosis Diagnosis: COPD, a flutter Code Status: Limited Resuscitation - Medication Management Discharge Medications: electronically signed and located in the Home Medication List. PICC Care - Routine: N/A - Orders Services needed: Home Care, Registered Nurse, Physical Therapy, Occupational Therapy Home Care Face to Face: I certify that this patient was under my care and that I had the required [id number] encounter meeting the encounter requirements on the discharge day. My findings support the fact that the patient is homebound as defined in Home Care Face to Face Continued: CMS Chapter 7 Medicare Benefits Manual 30.1.1 , The condition of the patient is such that there exists a normal inability to leave home and consequently, leaving home would require a considerable and taxing effort. Oxygen: 2 LPM Diet Recommendation: no restrictions on diet Diet Texture: Regular Texture Diet, Thin Liquids, Meds Whole w/Liquids - Follow Up Care Current Providers and Referrals: Estela Grimaldo MD [Primary Care Provider] - As per Instructions Raul Muhammad MD [Medical Doctor] - (follow up in 2 weeks, call to make appointment ) Doroteo Geiger MD [Medical Doctor] -
--- NOTE | 2018-11-20 10:16 | ASMTLACE ---
LACE Length of stay for Answers: 7-13 days current admission Acuity / Level of Answers: Yes Care: Did the patient have an inpatient admission? Comorbidities - select Answers: Any tumor (including all that apply lymphoma or leukemia) Chronic pulmonary disease # of Emergency department Answers: 1-2 visits in the last 6 months Score: 13 Date Signed: 11/20/2018 10:14 AM Electronically Signed By:BOUCHRA Bianchi
--- NOTE | 2018-11-20 10:22 | ASMTDCNOTE ---
Case Management Discharge Discharge Order Complete? Answers: Yes Patient to Obtain Answers: Independently Medications Transportation Arranged Answers: Family/Friends EMTALA Complete Answers: No Case Management Transport Answers: No Form Complete Faxed Final Orders Answers: Yes Agency/Facility Transfer Answers: Yes Report Printed & Faxed to Receiving Agency Family Notified Answers: Yes Discharge Comments Notes: Pts case discussed w/ Dr. Lewis. Pts daughter Zonia and pt are requesting for HC services. Referral made to [facility] and they are able to accept. Zonia would like to be the supervisor contact lens; her number is [phone]. Pt is hard of hearing on the phone. Zonia is visiting from [place] and will be here until Monday. CM available for changes. Plan: [facility]; PT, OT, RN Date Signed: 11/20/2018 10:18 AM Electronically Signed By:BOUCHRA Bianchi
--- NOTE | 2018-11-20 10:24 | ASDISCHSUM ---
Discharge Information Plan Status:Home with Home Health Medically Cleared to Leave:11/20/2018 Discharge Date:11/20/2018 CM D/C Disposition: ADT D/C Disposition:Home Health Service Projected Discharge Date:11/20/2018 11:00 AM Transportation at D/C: Discharge Delay Reason: Follow-Up Date:11/20/2018 11:00 AM Discharge Slot: Final Diagnosis: Placement Information Referral Type:*Home Health Care Services Referral ID:[id number] Provider Name:[facility] Address 1:[address] Address 2: City:[place] Selection Factors: State:[place] Patient Contact Information Contact Name:KIRSTEN Relationship:Krissteresa Address: Work Phone: City:[facility] Phone: State/Zip Code:[place] Email: Financial Information Financial Class:Medicare Advantage Plans Primary Plan Desc:FELA CASTRO MEDICARE ADV Primary Plan Number:[id number] Secondary Plan Desc: Secondary Plan Number: Assessment Information LACE LACE Length of stay for Answers: 7-13 days current admission Acuity / Level of Answers: Yes Care: Did the patient have an inpatient admission? Comorbidities - select Answers: Any tumor (including all that apply lymphoma or leukemia) Chronic pulmonary disease # of Emergency department Answers: 1-2 visits in the last 6 months Score: 13 Date Signed: 11/20/2018 10:14 AM Electronically Signed By:BOUCHRA Bianchi [facility] [place] Progress Note CM Note [place] Note Notes: Chart review conducted by CM, and CM also spoke with pt's RN. Pt lives independently and has niece locally listed in chart and daughter out of state. Pt admitted for acute hypoxic respiratory failure. Pulmonology consulted today. PT has cleared pt for "home with supervision". Pt not likely to dc today or tomorrow. CM to follow. D/C Plan: TBD Date Signed: 11/13/2018 11:58 AM Electronically Signed By:Marilee Hicks [facility] Progress Note CM Note CM Note Notes: 11/16/2018 Case Management Note Reviewed chart. PT has cleared for home. There were no identified outpatient needs from [facility]. No other case management d/c needs identified. Case Management d/c poc: home with follow up as directed. Case Management to follow. Date Signed: 11/16/2018 02:55 PM Electronically Signed By:Inocencia Yarbrough RN [facility] [place] Progress Note CM Note CM Note Notes: Pts case discussed in tx rounds. Pt is not medically stable to d/c at this time. Pt is still short of breath. When pt is medically stable to d/c, pt does not have any needs. CM available for changes. Plan: Independent Date Signed: 11/19/2018 11:47 AM Electronically Signed By:BOUCHRA Bianchi Case Management Discharge Plan Note Case Management Discharge Discharge Order Complete? Answers: Yes Patient to Obtain Answers: Independently Medications Transportation Arranged Answers: Family/Friends EMTALA Complete Answers: No Case Management Transport Answers: No Form Complete Faxed Final Orders Answers: Yes Agency/Facility Transfer Answers: Yes Report Printed & Faxed to Receiving Agency Family Notified Answers: Yes Discharge Comments Notes: Pts case discussed w/ Dr. Lewis. Pts daughter Zonia and pt are requesting for HC services. Referral made to [facility] and they are able to accept. Zonia would like to be the contact lens cutter; her number is [phone]. Pt is hard of hearing on the phone. Zonia is visiting from [place] and will be here until Monday. CM available for changes. Plan: [facility]; PT, OT, RN Date Signed: 11/20/2018 10:18 AM Electronically Signed By:BOUCHRA Bianchi Intervention Information Intervention Type:*IM-Signed Date of Service:11/19/2018 10:26 AM Patient Type:Inpatient Staff Member:Tonya Albrecht Hours: Discipline: Severity: Comment:
--- NOTE | 2018-11-20 17:41 | GDS ---
[f rep st] DISCHARGE SUMMARY DISCHARGE DIAGNOSES: 1. Acute exacerbation of chronic obstructive pulmonary disease. 2. Paroxysmal atrial flutter with rapid ventricular response. 3. Episode of supraventricular tachycardia. 4. Acute on chronic hypoxemic respiratory failure, baseline of 2 L per minute. 5. Pulmonary hypertension. 6. History of pulmonary nodules. 7. History of thyroid cancer. 8. Hypertension. 9. Hyperlipidemia. CONSULTANTS: 1. Dr. Nicola Cueto, Pulmonology. 2. Dr. Raul Muhammad, Cardiology. HISTORY: For details, please see history and physical dated November 12, 2018. In brief, the patient is an 83-year-old female with a history of chronic hypoxemia on nocturnal oxygen, COPD, and hypertensio n who presented to the emergency department with shortness of breath. She was found to be hypoxemic and admitted to the hospital for acute exacerbation of her COPD. HOSPITAL COURSE: Patient was admitted to the med/surg unit. She presented with an oxygen saturation of 80% on room air. She received IV Solu-Medrol, DuoNeb, and Levaquin. A spiculated nodular opacit y in the right lower lobe and enlarging rounded solid mass in the left lingula was noted on her chest x-ray. 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 Doroteo Geiger. During the treatment course of her COPD, she developed episodes of rapid atrial flutter with her hear t rate jumping to the 160s. She was initially treated with beta stephanie. Cardiology consult was obt ained. She was transitioned to oral diltiazem, and at the time of discharge has been uptitrated to d iltiazem CD 120 mg twice daily. With this regimen, she has maintained good rate control without any episodes of rapid ventricular rate for over 24 hours. Her steroids have been weaned to oral predniso ne and she will continue a prednisone taper at discharge. She was started on Eliquis given her atria l flutter. She was slow to improve, but is stable for discharge home. OBJECTIVE: VITAL SIGNS: On discharge, blood pressure is 141/95, heart rate 87, respiratory rate 18, she is 96% on 2 L of oxygen by nasal cannula. DISPOSITION: Patient is discharged home in stable condition with home health care RN and PT/OT. FOLLOWUP: 1. Dr. Estela Grimaldo, primary care. 2. Dr. Raul Muhammad, Cardiology. 3. Rigoberto Geiger, Pulmonology. DISCHARGE MEDICATIONS: Please see [facility] for completed outpatient medication list. Medications on discharge, include Eliquis 2.5 mg p.o. b.i.d. #60 no refills, diltiazem CD 120 mg p.o. b.i.d. #60 no refills; prednisone 20 mg p.o. daily for 4 days, then 10 mg p.o. daily for 4 days, albuterol 1 to 2 puffs inhaled q.4 hours no refills, Atrovent 1 puff inhaled q.i.d. #1 no refills. She will continue all other outpatient medications as previously prescribed, including Crestor 5 mg daily, levothyroxin e 112 mcg daily, vitamin D3, and calcium carbonate. Discontinued medications: Aspirin is discontinued in favor of Eliquis. Triamterene HCTZ is disconti nued in favor of diltiazem for rate control. Tylenol with Benadryl is discontinued due to the risk o f side effects from Benadryl in her age range. Her prednisone is increased as described above to com plete a taper. /[id number]/MODL
== END 2018-11-20 13:25 | disposition home health service (06) | DRG 190 ==
LOC: F3E 15:15 → F2W 11-16 07:45
PROVIDERS: ADMIT Internal Medicine; ATTEND Internal Medicine
DX: J44.1 Chronic obstructive pulmonary disease with (acute) exacerbation (principal); J96.21 Acute and chronic respiratory failure with hypoxia; I47.1 Supraventricular tachycardia; B37.9 Candidiasis, unspecified; I48.0 Paroxysmal atrial fibrillation; I27.20 Pulmonary hypertension, unspecified; I10 Essential (primary) hypertension; E78.5 Hyperlipidemia, unspecified; Z85.850 Personal history of malignant neoplasm of thyroid; Z87.891 Personal history of nicotine dependence; Z99.81 Dependence on supplemental oxygen
CPT/HCPCS: 84484-ER; 92526-GN; 92610-GN; 96374; 97116-GP; 97161-GP; 97164-GP; 97165-GO; J0153; J1650; J1956; J2930; J7512

== ENCOUNTER → 2018-12-25 | Outpatient (CLI) | payer OTHER | LOC: BMCIMAGING 14:02 | PROVIDERS: ATTEND Family Medicine | DX: S52.592A Other fractures of lower end of left radius, initial encounter for closed fracture (principal); M85.88 Other specified disorders of bone density and structure, other site ==